=== PATIENT | male | born 1955 | race Caucasian/White ===

== ENCOUNTER 2020-08-16 10:10 | Emergency (ER) | payer OTHER, SELFPAY ==
[2020-08-16 10:17] VITALS: BP 196/63; PULSE 80; RESP 18; TEMP 36.8; O2SAT 98; BMI 25.8
--- NOTE | 2020-08-16 10:28 | HMH.EDGENADL ---
ED Disposition Clinical Impression: CVA, old, disturbances of vision Headache Qualifiers: Headache type: unspecified Headache chronicity pattern: acute headache Intractability: not intractable Qualified Code(s): R51 - Headache Eye pain Qualifiers: Laterality: left Qualified Code(s): H57.12 - Ocular pain, left eye Disposition: Home, Self-Care Condition on Discharge: Fair Instructions: DI for Headache Additional Instructions: Go straight to Dr. Cooper's office for eye exam. Dr. Roberto Cooper [facility] [address] [place] [address] Follow-up in the office with Dr. Gupta, call for appointment. Take aspirin 81 mg/day. Additional instructions for HEADACHE: See your physician as soon as possible for further evaluation. Return immediately if worsening headache, vomiting, problems with vision or speech, fever, numbness or weakness of the extremities, neck pain or stiffness. Referrals: Jac Gupta MD [Primary Care Provider] - - Critical Care Critical Care Time: No Attestation: On 08/16/20, the high probability of a clinically significant, sudden or life threatening deterioration of the following system(s) required my full and direct attention, intervention and personal management. The time I documented below is in addition to time spent performing reported procedures but includes the following listed in this critical care notation. Medical Decision Making - Medical Records Medical records reviewed: Yes: I reviewed the patient's medical records. - Donnell Inquiry Pt receiving controlled substance: Yes Donnell was queried for this patient: No Reason not queried -: Emergent pt cond-no time Risks and benefits of using a controlled substance: were not discussed with pt by me Vital Signs: 08/16/20 10:17 08/16/20 11:44 Temperature 98.2 F 98.1 F Temperature Source Oral Oral Pulse Rate 78 Pulse Rate [Right Brachial] 80 Respiratory Rate 18 18 Blood Pressure 165/76 H Blood Pressure [Right Arm] 196/63 H Blood Pressure Mean [Right Arm] 107 Blood Pressure Source Automatic Cuff Blood Pressure Source [Right Arm] Automatic Cuff Blood Pressure Position Supine Blood Pressure Position [Right Arm] Supine 02 Sat by Pulse Oximetry 98 Oxygen Delivery Method Room Air Room Air - Lab Data Lab results reviewed: Yes: I reviewed the patient's lab results. Lab Results 08/16/20 10:53: WBC 8.3, RBC 5.73, Hgb 17.9, Hct 50.4, MCV 88.0, MCH 31.3 H, MCHC 35.5 H, RDW 13.5, Plt Count 203, MPV 7.7, Neut % (Auto) 74.7, Lymph % (Auto) 16.7, Teller % (Auto) 6.3, Eos % (Auto) 1.6, Baso % (Auto) 0.7, Neut # (Auto) 6.2, Lymph # (Auto) 1.4, Teller # (Auto) 0.5, Eos # (Auto) 0.1, Baso # (Auto) 0.1, ESR 1 08/16/20 10:53: Sodium 127 L, Potassium 4.8, Chloride 86 L, Carbon Dioxide 33 H, Anion Gap 12.8, BUN 7 L, Creatinine 0.60 L, Estimated Creat Clear 80, Estimated GFR 136, Est GFR ( Amer) 165, Glucose 123 H, Calcium 9.1, Total Bilirubin 1.4 H, AST 32, ALT 18, Alkaline Phosphatase 64, C-Reactive Protein 1.6, Total Protein 7.1, Albumin 4.0, Globulin 3.1, Albumin/Globulin Ratio 1.3 Result diagrams: 08/16/20 10:53 08/16/20 10:53 Orders (Tests/Meds): ED MEDICATIONS Discontinued Medications Generic Name Dose Route Start Last Admin Trade Name Freq PRN Reason Stop Dose Admin Morphine Sulfate 4 mg 08/16/20 10:41 08/16/20 10:53 Morphine 4mg/Ml Syringe IV 08/16/20 10:42 4 mg ONCE ONE Administration Ondansetron HCl 4 mg 08/16/20 10:41 08/16/20 10:54 Zofran 4mg/2ml Vial IV 08/16/20 10:42 4 mg ONCE ONE Administration - CT Data CT Scan: Head Time Received: 11:[address] Reviewed: Yes: I have reviewed the patient's CT results, I discussed the CT results w/the radiologist, I have viewed the radiologist's interpretation Findings Narrative: PROCEDURE: CT HEAD/BRAIN WO CON CLINICAL INDICATION: headache Severe headache COMPARISON: No exams
--- NOTE | 2020-08-16 10:40 | CT_ITS ---
PROCEDURE: CT HEAD/BRAIN WO CON CLINICAL INDICATION: headache Severe headache COMPARISON: No exams were available for comparison TECHNIQUE: Axial images obtained. All CT scans at the facility use one or more dose reduction, viz: automated exposure control, ma/kV adjustment per patient size (including targeted exams where dose is matched to indication, i.e. head), or iterative reconstruction technique. FINDINGS: No midline shift, mass effect, intracranial hemorrhage, hydrocephalus, or extra-axial fluid collection is evident. Low-density changes are present in the left occipital lobe consistent with encephalomalacia change from an old area of infarction. The calvarium has an unremarkable appearance. No mastoid effusion. There is mild mucosal thickening of the ethmoid sinuses. Lobular soft tissue density is present in the floor the right maxillary sinus consistent with a retention cyst. No mastoid effusion IMPRESSION: Low-density changes in the left occipital lobe consistent with an area of encephalomalacia from old infarction. Please correlate with clinical findings. Otherwise negative with no acute intracranial findings. Dictated by: Phill Mera MD 08/16/2020 11:15 Phill Mera MD in [place] 08/16/2020 11:15
--- NOTE | 2020-08-16 10:54 | PC.NURSE ---
EMILY RAYMUNDO spoke with Dr. Cooper at this time
[2020-08-16 10:59] LABS: Basophils # 0.1 K/mm3 (0-0.2); Basophils % 0.7 % (0.1-2.0); Eosinophils # 0.1 K/mm3 (0.0-0.4); Eosinophils % 1.6 % (0.1-12.0); Hematocrit 50.4 % (42.0-52.0); Hemoglobin 17.9 g/dL (14.1-18.0); Lymphocytes # 1.4 K/mm3 (0.7-4.5); Lymphocytes % 16.7 % (10-50); Mean Corpuscular HGB Conc 35.5 g/dL (31.8-35.4); Mean Corpuscular Hemoglobin 31.3 pg (27.0-31.2); Mean Platelet Volume 7.7 fl (7.4-10.4); Monocytes # 0.5 K/mm3 (0.1-1.0); Monocytes % 6.3 % (1.7-9.3); Neutrophils # 6.2 K/mm3 (1.8-7.8); Neutrophils % 74.7 % (37.0-80.0); Platelet Count 203 K/mm3 (142-424); Red Blood Count 5.73 M/mm3 (4.60-6.20); Red Cell Distribution Width 13.5 % (11.5-17.5); White Blood Count 8.3 K/mm3 (4.8-10.8)
[2020-08-16 11:00] LABS: Chloride 86 mmol/L (98-107); Potassium 4.8 mmoL/L (3.5-5.1); Sodium 127 mmol/L (136-145)
[2020-08-16 11:02] LABS: Alanine Aminotransferase 18 U/L (12-78); Aspartate Amino Transferase 32 U/L (17-59); Blood Urea Nitrogen 7 mg/dl (9-20); Creatinine Clearance Estimated 80 mL/min (50-200); Estimated Glomerular Filt Rate 136 ml/min (>60); GFR (African American) 165 ML/MIN (>60)
[2020-08-16 11:03] LABS: Albumin/Globulin Ratio 1.3 (1.1-1.8); Alkaline Phosphatase 64 U/L (38-126); Anion Gap 12.8 mEq/L (5-15); Bilirubin,Total 1.4 mg/dl (0.2-1.3); Calcium 9.1 mg/dl (8.4-10.2); Carbon Dioxide 33 mmol/L (22.0-30.0); Globulin 3.1 g/dL (1.3-3.2); Glucose 123 mg/dl (74-100); Total Protein,Serum 7.1 g/dl (6.3-8.2)
[2020-08-16 11:09] LABS: C-Reactive Protein 1.6 mg/L (0-4)
--- NOTE | 2020-08-16 11:18 | PC.NURSE ---
ER spoke with radiologist r/t CT at this time
--- NOTE | 2020-08-16 11:24 | PC.NURSE ---
EMILY RAYMUNDO speaking with Dr. Gupta
--- NOTE | 2020-08-16 11:25 | PC.NURSE ---
visual acuity done. right-20/50 left-20/200 both-20/50
--- NOTE | 2020-08-16 11:30 | PC.NURSE ---
dr vanegas consulting with dr mathews at this time.
[2020-08-16 11:44] VITALS: BP 165/76; PULSE 78; RESP 18; TEMP 36.7; O2SAT 99
[2020-08-16 11:56] LABS: Erythrocyte Sedimentation Rate 1 mm/hr (0-20)
== END 2020-08-16 11:47 | disposition home or self-care (01) ==
PROVIDERS: Emergency Provider Emergency Medicine; PCP Family Medicine
DX: I69.398 Other sequelae of cerebral infarction (principal); H57.12 Ocular pain, left eye
CPT/HCPCS: 70450; 80053; 85025; 85651; 86140; 96374; 96375; 99282; J2405

== ENCOUNTER → 2021-03-30 17:21 | Outpatient (CLI) | payer BC, SELFPAY ==
[2021-03-30 17:44] LABS: Basophils # 0.1 K/mm3 (0-0.2); Basophils % 1.7 % (0.1-2.0); Eosinophils # 0.2 K/mm3 (0.0-0.4); Eosinophils % 2.6 % (0.1-12.0); Hemoglobin 15.8 g/dL (14.1-18.0); Lymphocytes # 1.8 K/mm3 (0.7-4.5); Lymphocytes % 32.6 % (10-50); Mean Corpuscular HGB Conc 31.7 g/dL (31.8-35.4); Mean Corpuscular Volume 88.4 fl (80-94); Mean Platelet Volume 8.2 fl (7.4-10.4); Monocytes # 0.5 K/mm3 (0.1-1.0); Monocytes % 8.7 % (1.7-9.3); Neutrophils # 3.1 K/mm3 (1.8-7.8); Neutrophils % 54.4 % (37.0-80.0); Platelet Count 231 K/mm3 (142-424); Red Blood Count 5.65 M/mm3 (4.60-6.20); Red Cell Distribution Width 13.3 % (11.5-17.5); White Blood Count 5.6 K/mm3 (4.8-10.8)
[2021-03-30 17:51] LABS: Alanine Aminotransferase 14 U/L (12-78); Albumin Level 4.5 g/dl (3.5-5.0); Albumin/Globulin Ratio 1.7 (1.1-1.8); Alkaline Phosphatase 72 U/L (38-126); Anion Gap 13.5 mEq/L (5-15); Aspartate Amino Transferase 25 U/L (17-59); Bilirubin,Total 0.5 mg/dl (0.2-1.3); Blood Urea Nitrogen 16 mg/dl (9-20); Calcium 10.1 mg/dl (8.4-10.2); Carbon Dioxide 35 mmol/L (22.0-30.0); Chloride 93 mmol/L (98-107); Chol/HDL Ratio 3.5 (1-3.5); Cholesterol 156 mg/dl (140-200); Estimated Glomerular Filt Rate 98 ml/min (>60); GFR (African American) 118 ML/MIN (>60); Globulin 2.7 g/dL (1.3-3.2); Glucose 113 mg/dl (74-100); HDL Cholesterol 44 mg/dl (40-60); Potassium 4.5 mmoL/L (3.5-5.1); Sodium 137 mmol/L (136-145); Total Protein,Serum 7.2 g/dl (6.3-8.2); Triglycerides 168 mg/dl (30-150); VLDL Cholesterol 34 mg/dL (0-40)
[2021-03-30 18:02] LABS: Direct LDL Cholesterol 85.69 mg/dL (100-129)
[2021-03-30 18:08] LABS: T4 (Thyroxine) 7.6 ug/dl (5.53-11.0)
[2021-03-30 18:21] LABS: Thyroid Stimulating Hormone 2.22 uIU/mL (0.465-4.68)
[2021-04-02 06:33] LABS: PSA, Free 0.33 ng/mL; Prostate Specific Ag 0.9 ng/mL (0.0-4.0)
== END ==
PROVIDERS: Visit Provider Nurse Practitioner Family
DX: I10 Essential (primary) hypertension (principal); R07.9 Chest pain, unspecified; R06.02 Shortness of breath; I69.398 Other sequelae of cerebral infarction; H53.9 Unspecified visual disturbance; Z72.0 Tobacco use; Z12.5 Encounter for screening for malignant neoplasm of prostate
CPT/HCPCS: 80053; 80061; 84153; 84154; 84436; 84443; 85025

== ENCOUNTER → 2022-05-04 14:42 | Outpatient (CLI) | payer BC, SELFPAY ==
[2022-05-04 14:17] LABS: Alanine Aminotransferase 14 U/L (12-78); Albumin Level 4.1 g/dl (3.5-5.0); Albumin/Globulin Ratio 1.5 (1.1-1.8); Alkaline Phosphatase 94 U/L (38-126); Anion Gap 11.4 mEq/L (5-15); Aspartate Amino Transferase 27 U/L (17-59); Bilirubin,Total 0.7 mg/dl (0.2-1.3); Blood Urea Nitrogen 10 mg/dl (9-20); Calcium 8.9 mg/dl (8.4-10.2); Carbon Dioxide 37 mmol/L (22.0-30.0); Chloride 90 mmol/L (98-107); Chol/HDL Ratio 3.9 (1-3.5); Cholesterol 154 mg/dl (140-200); Estimated Glomerular Filt Rate 114 ml/min (>60); GFR (African American) 137 ML/MIN (>60); Globulin 2.7 g/dL (1.3-3.2); Glucose 148 mg/dl (74-100); HDL Cholesterol 40 mg/dl (40-60); Potassium 4.4 mmoL/L (3.5-5.1); Sodium 134 mmol/L (136-145); Total Protein,Serum 6.8 g/dl (6.3-8.2); Triglycerides 81 mg/dl (30-150); VLDL Cholesterol 16 mg/dL (0-40)
[2022-05-04 14:20] LABS: Basophils # 0.2 K/mm3 (0-0.2); Basophils % 4.1 % (0.1-2.0); Eosinophils # 0.2 K/mm3 (0.0-0.4); Eosinophils % 2.7 % (0.1-12.0); Hematocrit 49.4 % (42.0-52.0); Hemoglobin 16.2 g/dL (14.1-18.0); Lymphocytes # 1.1 K/mm3 (0.7-4.5); Lymphocytes % 19.9 % (10-50); Mean Corpuscular HGB Conc 32.7 g/dL (31.8-35.4); Mean Corpuscular Hemoglobin 29.1 pg (27.0-31.2); Mean Platelet Volume 9.2 fl (7.4-10.4); Monocytes # 0.4 K/mm3 (0.1-1.0); Monocytes % 6.5 % (1.7-9.3); Neutrophils # 3.7 K/mm3 (1.8-7.8); Neutrophils % 66.7 % (37.0-80.0); Platelet Count 237 K/mm3 (142-424); Red Blood Count 5.56 M/mm3 (4.60-6.20); Red Cell Distribution Width 14.3 % (11.5-17.5); White Blood Count 5.5 K/mm3 (4.8-10.8)
[2022-05-04 14:29] LABS: Direct LDL Cholesterol 89.02 mg/dL (100-129)
[2022-05-04 14:34] LABS: 25-OH Vitamin D, Total 19.2 ng/mL (30-100)
[2022-05-04 14:35] LABS: T4 (Thyroxine) 8.3 ug/dl (5.53-11.0)
[2022-05-04 14:49] LABS: Prostate Specific Ag Screen 13.7 ng/ml (0.0-4.0)
== END ==
PROVIDERS: PCP Nurse Practitioner Family; Visit Provider Nurse Practitioner Family
DX: I10 Essential (primary) hypertension (principal); Z12.5 Encounter for screening for malignant neoplasm of prostate; Z79.899 Other long term (current) drug therapy
CPT/HCPCS: 80053; 80061; 82306; 84436; 84443; 85025; G0103

== ENCOUNTER → 2023-07-03 11:25 | Outpatient (CLI) | payer MEDICARE, MEDICAID, SELFPAY | PROVIDERS: PCP Nurse Practitioner Family; Visit Provider Nurse Practitioner Family | DX: N39.0 Urinary tract infection, site not specified (principal); B96.29 Other Escherichia coli [E. coli] as the cause of diseases classified elsewhere | CPT/HCPCS: 87086; 87088; 87186 ==

== ENCOUNTER → 2023-08-19 11:19 | Outpatient (CLI) | payer MEDICARE, MEDICAID, SELFPAY | PROVIDERS: PCP Nurse Practitioner Family; Visit Provider Nurse Practitioner Family | DX: R82.90 Unspecified abnormal findings in urine (principal) | CPT/HCPCS: 87086 ==

== ENCOUNTER → 2023-08-26 11:21 | Outpatient (CLI) | payer MEDICARE, MEDICAID, SELFPAY | PROVIDERS: PCP Nurse Practitioner Family; Visit Provider Nurse Practitioner Family | DX: R82.90 Unspecified abnormal findings in urine (principal); B96.89 Other specified bacterial agents as the cause of diseases classified elsewhere | CPT/HCPCS: 87086; 87088; 87186 ==

== ENCOUNTER 2024-02-12 20:03 | Outpatient (CLI) | payer MEDICARE, MEDICAID, SELFPAY | END 2024-02-12 23:59 | PROVIDERS: PCP Nurse Practitioner Family; Visit Provider Nurse Practitioner Family | DX: N39.0 Urinary tract infection, site not specified (principal); B96.89 Other specified bacterial agents as the cause of diseases classified elsewhere | CPT/HCPCS: 87086 ==

== ENCOUNTER 2024-06-12 10:56 | Emergency (ER) | payer MEDICARE, SELFPAY ==
[2024-06-12] VITALS (8 sets, daily range): BP systolic 125–155; BP diastolic 62–93; PULSE 69–115; RESP 20; TEMP 36.7; O2SAT 94–97; BMI 21.9
--- NOTE | 2024-06-12 11:19 | HMH.EDGENADL ---
Discharge Plan Disposition Patient Disposition: Home, Self-Care Condition: Fair Prescriptions Prescriptions: New clindamycin HCl 300 mg capsule 450 mg PO TID 7 Days Qty: 32 0RF No Action levofloxacin 750 mg tablet 750 mg PO DAILY Qty: 7 0RF atorvastatin 80 mg tablet 80 mg PO HS Qty: 90 2RF clopidogrel 75 mg tablet 75 mg PO DAILY Qty: 90 0RF ropinirole 1 mg tablet See Rx Instructions .ROUTE .COMPLEX Qty: 60 0RF Dose Instruction: TAKE 1 TABLET BY MOUTH AT BEDTIME INCREASE TO 2 TABLETS AFTER 7 DAYS IF NEEDED Rx Instructions: TAKE 1 TABLET BY MOUTH AT BEDTIME INCREASE TO 2 TABLETS AFTER 7 DAYS IF NEEDED Referrals Follow up/Referrals: Simon Mccoy APRN [Primary Care Provider] - See instructions Clinical Impressions Clinical Impression: Cellulitis of right lower extremity Discharge ED Provider: Alex Ferrer General Adult HPI General Chief complaint: Extremity Problem,Nontraumatic Stated complaint: soa R foot infection Time Seen by Provider: 06/12/24 11:18 Mode of Arrival: Wheelchair Source of Information: Patient Limitations: Physical Limitations Description of Symptoms (Recalled from ER Triage Doc. by RN): Patient reports pain and swelling in his right foot and calf muscle for approx 1 year. States it is just getting worse. Reports seeing his family doctor multiple times for this problem and was told that they would make him a vascular appointment and it never got made. History of Present Illness HPI narrative: 68-year-old male with past medical history significant for CVA, HTN, IN, peripheral vascular disease, left AKA, presents today for evaluation concerning right lower extremity swelling, erythema and pain worsening over the past several months. He also reports shortness of breath. Denies any chest pain, fevers, chills, cough or congestion. Denies history of DVT or PE. He denies any other associated symptoms at this time. No further complaints. Related Data Previous Rx's Medication Instructions Recorded levofloxacin 750 mg tablet 750 mg PO DAILY #7 tabs 02/12/24 atorvastatin 80 mg tablet 80 mg PO HS #90 tabs 04/29/24 clopidogrel 75 mg tablet 75 mg PO DAILY #90 tabs 04/29/24 ropinirole 1 mg tablet See Rx Instructions .Route 05/25/24 .COMPLEX #60 tabs clindamycin HCl 300 mg capsule 450 mg (1.5 x 300 mg) PO TID 7 06/12/24 days #32 caps Allergies Allergy/AdvReac Type Severity Reaction Status Date / Time No Known Allergies Allergy Verified 02/12/24 14:13 [facility] Disclaimer: The information contained in this section may have been updated after the patient was seen, as this information can be updated by other users. Medical History Left above-knee amputee Social History Smoking Status: Former smoker tobacco type: cigarettes packs per day: 1 alcohol intake: former substance use type: denies use current occupational status: unemployed Travel in the last 8 weeks: None household members: other ROS Obtained: Yes All systems reviewed & no additional complaints except as documented Physical Exam General General appearance: alert and in no apparent distress Head Head exam: atraumatic and normocephalic Eye Eye exam: Present normal appearance, PERRL and EOMI ENT ENT exam: Present normal oropharynx and mucous membranes moist Neck Neck exam: Present full ROM; Absent meningismus Respiratory Respiratory exam: Absent respiratory distress, wheezes, stridor or accessory muscle use Cardiovascular Cardiovascular exam: Present normal rhythm Abdominal Exam Abdominal exam: Present soft; Absent distention, tenderness, guarding, rebound or rigidity Extremities Exam Extremities exam: Present other (Left AKA. Right lower extremity with 3+ pitting edema from the knee to the foot. The foot is erythematous and tender to palpation) Neurological Exam Neurological exam: Present alert, oriented X3 and CN II-XII intact; Absent motor sensory deficit Psychiatric Psychiatric exam: Present normal affect and normal mood Skin Skin exam: Present warm and dry Medical Decision Making Medical Records Medical records reviewed: Yes I reviewed the patient's medical records. Donnell Inquiry Pt receiving controlled substance: No Donnell was queried for this patient: No Vital Signs: 06/12/24 10:57 06/12/24 11:15 06/12/24 11:52 Temperature 98.0 F Temperature Source Oral Pulse Rate 98 H 93 H Pulse Rate [Radial] 115 H Respiratory Rate 20 Blood Pressure 142/67 H Blood Pressure [Right Arm] 155/93 H Blood Pressure Mean [Right Arm] 113 Blood Pressure Source [Right Arm] Automatic Cuff Blood Pressure Position [Right Arm] Sitting 02 Sat by Pulse Oximetry 96 96 94 L Oxygen Delivery Method Room Air 06/12/24 12:01 06/12/24 12:31 06/12/24 13:01 Temperature Temperature Source Pulse Rate 83 74 69 Pulse Rate [Radial] Respiratory Rate Blood Pressure 125/68 131/62 140/78 Blood Pressure [Right Arm] Blood Pressure Mean [Right Arm] Blood Pressure Source [Right Arm] Blood Pressure Position [Right Arm] 02 Sat by Pulse Oximetry 94 L 97 97 Oxygen Delivery Method 06/12/24 13:30 Temperature Temperature Source Pulse Rate 77 Pulse Rate [Radial] Respiratory Rate Blood Pressure 134/80 Blood Pressure [Right Arm] Blood Pressure Mean [Right Arm] Blood Pressure Source [Right Arm] Blood Pressure Position [Right Arm] 02 Sat by Pulse Oximetry 96 Oxygen Delivery Method Lab Data Lab Results 06/12/24 11:41: WBC 8.0, RBC 4.81, Hgb 13.7 L, Hct 40.7 L, MCV 84.6, MCH 28.4, MCHC 33.6, RDW 15.5, Plt Count 276, MPV 7.8, Neut % (Auto) 68.1, Lymph % (Auto) 17.4, Casey % (Auto) 5.4, Eos % (Auto) 8.2, Baso % (Auto) 1.0, Neut # (Auto) 5.4, Lymph # (Auto) 1.4, Casey # (Auto) 0.4, Eos # (Auto) 0.7 H, Baso # (Auto) 0.1, ESR 20, PT 10.3, INR 0.91, Sodium 135 L, Potassium 4.3, Chloride 102, Carbon Dioxide 27, Anion Gap 10.3, BUN 12, Creatinine 0.70, Estimated Creat Clear 65, Estimated GFR 113, Est GFR ( Amer) 137, Glucose 136 H, Calcium 8.9, Total Bilirubin 0.9, AST 36, ALT 23, Alkaline Phosphatase 92, C-Reactive Protein 4.7 H, NT-Pro-B Natriuret Pep 44.1, Total Protein 7.7, Albumin 4.3, Globulin 3.4 H, Albumin/Globulin Ratio 1.3 06/12/24 11:41 06/12/24 11:41 Orders (Tests/Meds): ED MEDICATIONS Discontinued Medications Generic Name Dose Route Start Last Admin Trade Name Freq PRN Reason Stop Dose Admin Famotidine 20 mg 06/12/24 13:37 06/12/24 13:51 Famotidine 20mg Tablet PO 06/12/24 13:38 Not Given ONCE ONE Morphine Sulfate 4 mg 06/12/24 11:28 06/12/24 11:45 Morphine 4mg/Ml Syringe IV 06/12/24 11:29 4 mg ONCE ONE Administration Ondansetron HCl 4 mg 06/12/24 11:28 06/12/24 11:45 Ondansetron 4mg/2ml Vial IV 06/12/24 11:29 4 mg ONCE ONE Administration ORDERS Category Date Time Status Foot XR left 2 views [XR foot LT 2V] Stat Exams 06/12/24 11:28 Completed BNP [NT Pro Brain Natriuretic Pep.] Stat Lab 06/12/24 11:41 Completed CBC w/Auto Diff [Complete Blood Count Auto Diff] Stat Lab 06/12/24 11:41 Completed CMP [Comprehensive Metabolic Panel] Stat Lab 06/12/24 11:41 Completed CRP [C-Reactive Protein] Stat Lab 06/12/24 11:41 Completed ESR [Erythrocyte Sedimentation Rate] Stat Lab 06/12/24 11:41 Completed PT INR [Prothrombin Time INR] Stat Lab 06/12/24 11:41 Completed CA venous doppler LE RT Stat Y 06/12/24 11:28 Completed Medical Decision Narrative: 68-year-old male with past medical history significant for CVA, HTN, IN, peripheral vascular disease, left AKA, presents today for evaluation concerning right lower extremity swelling, erythema and pain worsening over the past several months. He also reports shortness of breath. Denies any chest pain, fevers, chills, cough or congestion. Denies history of DVT or PE. He denies any other associated symptoms at this time. On assessment he was hemodynamically stable and in no acute distress. Afebrile. Chest clear to auscultation bilaterally. He was tachycardic with heart rate of 101 on monitor. Abdomen soft nondistended and nontender. Left AKA. Right lower extremity with 3+ pitting edema from the knee to the foot. Left foot was erythematous and tender to palpation. He did have calf tenderness to palpation as well. He did have palpable DP pulse. Pulses also able to be auscultated with Doppler. Other physical exam findings unremarkable. Differential diagnoses include not limited to DVT, PVD, cellulitis, among others. Labs today remarkable for a WBC of 8. CRP with mild elevation at 4.7. ESR unremarkable. X-ray of the right foot did not show any acute findings, chronic degenerative changes were noted. DVT ultrasound was negative. BNP 44.1, normal. On reassessment the patient remained hemodynamically stable and in no acute distress. His pain was improved. I discussed ED workup and results as well as clinical diagnosis of a cellulitis. I did use a bedside ultrasound to support diagnosis and findings consistent with cellulitis were noted. I did not save images. I discussed with family current plan to treat with outpatient antibiotics. Provided them with return ED precautions and instructions concerning follow-up. They will continue to attempt to make appointments with vascular surgery in the setting of patient's PVD. Patient was subsequently discharged hemodynamically stable and in no acute distress Critical Care Critical Care Time Critical Care Time: No
--- NOTE | 2024-06-12 11:28 | XR_ITS ---
FINAL REPORT CLINICAL HISTORY: pain FINDINGS: Left foot Two views were obtained. The bones are osteopenic. Mild degenerative changes are present. There is soft tissue swelling of the forefoot. The bony structures are difficult to evaluate secondary to diffuse osteopenia. Vascular calcification is identified. IMPRESSION: Degenerative and chronic appearing findings. Reviewed, Interpreted and Dictated by Cameron Pleitez III, MD Transcribed by Catrachita Mcnair Authenticated and [facility]
--- NOTE | 2024-06-12 11:28 | CA_ITS ---
FINAL REPORT TECHNIQUE: Color Doppler, duplex Doppler and compression sonography of the right lower extremity venous system was performed. CLINICAL HISTORY: RLE swelling and pain x 1 year, worse in last few months, 3+ pitting edema, Hx CVA, HTN, AR, left AKA, HLD, ex smoker. FINDINGS: There is no evidence of deep venous thrombosis from the level of the groin to the calf. The veins are patent and compressible. There is a right inguinal node, likely reactive. IMPRESSION: No evidence of deep venous thrombosis right lower extremity. Reviewed, Interpreted and Dictated by Cameron Pleitez III, MD Transcribed by Catrachita Mcnair Authenticated and [facility]
--- NOTE | 2024-06-12 11:40 | PC.NURSE ---
support service tech at bedside for portable XR
[2024-06-12] MEDS: ONDANSETRON 4MG/2ML VIAL 4 MG IV (11:45)
[2024-06-12] MEDS: MORPHINE 4MG/ML SYRINGE 4 MG IV (11:45)
[2024-06-12 11:49] LABS: Basophils # 0.1 K/mm3 (0-0.2); Eosinophils # 0.7 K/mm3 (0.0-0.4); Eosinophils % 8.2 % (0.1-12.0); Hematocrit 40.7 % (42.0-52.0); Hemoglobin 13.7 g/dL (14.1-18.0); Lymphocytes # 1.4 K/mm3 (0.7-4.5); Lymphocytes % 17.4 % (10-50); Mean Corpuscular HGB Conc 33.6 g/dL (31.8-35.4); Mean Corpuscular Hemoglobin 28.4 pg (27.0-31.2); Mean Corpuscular Volume 84.6 fl (80-94); Mean Platelet Volume 7.8 fl (7.4-10.4); Monocytes # 0.4 K/mm3 (0.1-1.0); Monocytes % 5.4 % (1.7-9.3); Neutrophils # 5.4 K/mm3 (1.8-7.8); Neutrophils % 68.1 % (37.0-80.0); Platelet Count 276 K/mm3 (142-424); Red Blood Count 4.81 M/mm3 (4.60-6.20); Red Cell Distribution Width 15.5 % (11.5-17.5)
[2024-06-12 11:58] LABS: Alanine Aminotransferase 23 U/L (12-78); Albumin Level 4.3 g/dl (3.5-5.0); Albumin/Globulin Ratio 1.3 (1.1-1.8); Alkaline Phosphatase 92 U/L (38-126); Anion Gap 10.3 mEq/L (5-15); Aspartate Amino Transferase 36 U/L (17-59); Bilirubin,Total 0.9 mg/dl (0.2-1.3); Blood Urea Nitrogen 12 mg/dl (9-20); Calcium 8.9 mg/dl (8.4-10.2); Carbon Dioxide 27 mmol/L (22.0-30.0); Chloride 102 mmol/L (98-107); Creatinine Clearance Estimated 65 mL/min (50-200); Estimated Glomerular Filt Rate 113 ml/min (>60); GFR (African American) 137 ML/MIN (>60); Globulin 3.4 g/dL (1.3-3.2); Glucose 136 mg/dl (74-100); INR 0.91 (0.9-1.1); Potassium 4.3 mmoL/L (3.5-5.1); Prothrombin Time 10.3 seconds (10.1-12.5); Sodium 135 mmol/L (136-145); Total Protein,Serum 7.7 g/dl (6.3-8.2)
[2024-06-12 12:10] LABS: C-Reactive Protein 4.7 mg/L (0-4)
[2024-06-12 12:45] LABS: Erythrocyte Sedimentation Rate 20 mm/hr (0-20)
[2024-06-12 13:54] LABS: NT Pro Brain Natriuretic Pep. 44.1 pg/mL (0-125)
== END 2024-06-12 15:07 | disposition home or self-care (01) ==
PROVIDERS: Emergency Provider Emergency Medicine; PCP Nurse Practitioner Family
DX: L03.115 Cellulitis of right lower limb (principal); I73.9 Peripheral vascular disease, unspecified; I10 Essential (primary) hypertension; M79.604 Pain in right leg; Z87.891 Personal history of nicotine dependence; Z86.73 Personal history of transient ischemic attack (TIA), and cerebral infarction without residual deficits; Z89.612 Acquired absence of left leg above knee
CPT/HCPCS: 73620; 80053; 83880; 85025; 85610; 85651; 86140; 93971; 96374; 96375; 99284; J2270; J2405

== ENCOUNTER 2024-09-10 10:42 | Emergency (ER) | payer MEDICARE, SELFPAY ==
[2024-09-10] VITALS (8 sets, daily range): BP systolic 101–163; BP diastolic 62–88; PULSE 74–100; RESP 18–20; TEMP 36.6–36.9; O2SAT 92–99; BMI 23.5
--- NOTE | 2024-09-10 10:50 | PC.NURSE ---
DR ALBERTO AT BEDSIDE
--- NOTE | 2024-09-10 11:00 | HMH.EDGENADL ---
Discharge Plan Disposition Patient Disposition: Home, Self-Care Prescriptions Prescriptions: No Action levofloxacin 750 mg tablet 750 mg PO DAILY Qty: 7 0RF atorvastatin 80 mg tablet 80 mg PO HS Qty: 90 2RF clopidogrel 75 mg tablet See Rx Instructions .ROUTE .COMPLEX Qty: 90 0RF Dose Instruction: Take 1 tablet by mouth once daily Rx Instructions: Take 1 tablet by mouth once daily ropinirole 1 mg tablet See Rx Instructions .ROUTE .COMPLEX Qty: 60 0RF Dose Instruction: TAKE 1 TABLET BY MOUTH AT BEDTIME INCREASE TO 2 TABLETS AFTER 7 DAYS IF NEEDED Rx Instructions: TAKE 1 TABLET BY MOUTH AT BEDTIME INCREASE TO 2 TABLETS AFTER 7 DAYS IF NEEDED clindamycin HCl 300 mg capsule 450 mg PO TID 7 Days Qty: 32 0RF Referrals Follow up/Referrals: Simon Mccoy APRN [Primary Care Provider] - See instructions Activity Restrictions/Add. Instructions Additional Instructions/Restrictions: Dalbavancin will begin working immediately, you will start to notice a difference in redness after about 3 days. Call your family doctor to establish care for this visit to the emergency department and schedule follow-up within 48 hours to ensure improvement. If you have any worsening of your condition or any other concerning signs or symptoms, return to the emergency department or your primary care doctor for further evaluation. Clinical Impressions Clinical Impression: Cellulitis of right leg Instructions Patient Instructions: DI for Skin Abscess Print Language Print Language: Italian Discharge ED Provider: Sterling Rodriguez General Adult HPI General Chief complaint: Skin/Abscess/Foreign Body Stated complaint: right leg swelling and drainage Time Seen by Provider: 09/10/24 10:50 Mode of Arrival: Wheelchair Source of Information: Patient and Significant Other Limitations: No Limitations Description of Symptoms (Recalled from ER Triage Doc. by RN): PT ARRIVES VIA WC, C/O PAIN, REDNESS AND DRAINAGE TO RIGHT LOWER LEG AND FOOT. ONGOING FOR 3 MONTHS History of Present Illness HPI narrative: Please note that above description of symptoms, in this electronic medical record under categorization of recalled from ER triage doctor by RN are reflective of an initial nursing assessment, however, is not reflective of my full history and physical exam that was personally taken and clarified. Consequentially, this preceding description of symptoms, which may include the patient's categorized chief complaint in the EMR, do not reflect my personal clinical impression, and the ultimate description of history of present illness and patient stated complaints should be deferred to this section of the note. Unless stated otherwise or congruent with this section of the note, additional signs, symptoms, or incongruence should be interpreted as inaccurate with my clinical impression. Related Data Previous Rx's ?Medication ?Instructions ?Recorded levofloxacin 750 mg tablet 750 mg PO DAILY #7 tabs 02/12/24 atorvastatin 80 mg tablet 80 mg PO HS #90 tabs 04/29/24 clindamycin HCl 300 mg capsule 450 mg (1.5 x 300 mg) PO TID 7 06/12/24 days #32 caps clopidogrel 75 mg tablet See Rx Instructions .Route 07/28/24 .COMPLEX #90 tabs ropinirole 1 mg tablet See Rx Instructions .Route 08/24/24 .COMPLEX #60 tabs Allergies Allergy/AdvReac Type Severity Reaction Status Date / Time No Known Allergies Allergy Verified 02/12/24 14:13 [facility] Disclaimer: The information contained in this section may have been updated after the patient was seen, as this information can be updated by other users. Medical History Left above-knee amputee Social History Smoking Status: Former smoker tobacco type: cigarettes packs per day: 1 alcohol intake: former substance use type: denies use current occupational status: unemployed Travel in the last 8 weeks: None household members: other Other Medical History Have you received the Flu Vaccine for this season: Yes Have you received the Pneumonia Vaccine: No ROS Obtained: Yes All systems reviewed & no additional complaints except as documented Physical Exam General General appearance: alert and in no apparent distress Comment: Chronically ill Head Head exam: atraumatic and normocephalic Eye Eye exam: Present normal appearance, PERRL and EOMI Neck Neck exam: Present normal inspection, full ROM and trachea midline Respiratory Respiratory exam: Absent respiratory distress, wheezes, stridor, accessory muscle use or prolonged expiratory phase Cardiovascular Cardiovascular exam: Present regular rate, normal rhythm and other (Pulses equal symmetric in upper and lower extremities) Abdominal Exam Abdominal exam: Present soft; Absent distention, tenderness or pulsatile mass Extremities Exam Extremities exam: Present edema and other (Left lower extremity AKA. Right lower extremity with erythema, drainage, cellulitic change, warmth, edema extending from lower leg just distal to knee all the way through toes.. No palpable crepitus. Capillary refill brisk) Neurological Exam Neurological exam: Present alert and oriented X3 Skin Skin exam: Present warm and dry; Absent diaphoresis or erythema Medical Decision Making Medical Records Medical records reviewed: Yes I reviewed the patient's medical records. Screening: Per USPSTF and CDC recommendations, given the prevalence of disease in our region, it is our hospital?s policy to screen for HIV and viral Hepatitis for all patients aged 18 and over and those with ongoing risk factors. Donnell Inquiry Pt receiving controlled substance: No Donnell was queried for this patient: No Vital Signs: 09/10/24 10:42 09/10/24 11:00 09/10/24 11:30 Temperature 98.4 F Temperature Source Oral Pulse Rate 95 H 81 Pulse Rate [Radial] 100 H Respiratory Rate 18 Blood Pressure 122/65 125/62 Blood Pressure [Right Arm] 163/88 H Blood Pressure Mean Blood Pressure Mean [Right Arm] 113 Blood Pressure Source [Right Arm] Automatic Cuff Blood Pressure Position [Right Arm] Sitting 02 Sat by Pulse Oximetry 96 95 92 L Oxygen Delivery Method Room Air 09/10/24 12:00 09/10/24 12:30 09/10/24 13:00 Temperature Temperature Source Pulse Rate 78 82 78 Pulse Rate [Radial] Respiratory Rate Blood Pressure 101/67 L 137/67 150/79 H Blood Pressure [Right Arm] Blood Pressure Mean 78 76 Blood Pressure Mean [Right Arm] Blood Pressure Source [Right Arm] Blood Pressure Position [Right Arm] 02 Sat by Pulse Oximetry 97 98 99 Oxygen Delivery Method Room Air Room Air 09/10/24 13:30 Temperature Temperature Source Pulse Rate 74 Pulse Rate [Radial] Respiratory Rate Blood Pressure 145/70 H Blood Pressure [Right Arm] Blood Pressure Mean Blood Pressure Mean [Right Arm] Blood Pressure Source [Right Arm] Blood Pressure Position [Right Arm] 02 Sat by Pulse Oximetry 99 Oxygen Delivery Method Lab Data Lab Results 09/10/24 10:52: WBC 6.5, RBC 5.23, Hgb 14.7, Hct 43.0, MCV 82.2, MCH 28.0, MCHC 34.1, RDW 15.7, Plt Count 271, MPV 7.5, Neut % (Auto) 71.7, Lymph % (Auto) 16.5, [place] % (Auto) 6.0, Eos % (Auto) 5.0, Baso % (Auto) 0.9, Neut # (Auto) 4.7, Lymph # (Auto) 1.1, [place] # (Auto) 0.4, Eos # (Auto) 0.3, Baso # (Auto) 0.1, PT 10.5, INR 0.93, APTT 30.4, Sodium 131 L, Potassium 3.6, Chloride 97 L, Carbon Dioxide 33 H, Anion Gap 4.6 L, BUN 13, Creatinine 0.70, Estimated Creat Clear 69, Estimated GFR 112, Est GFR ( Amer) 136, Glucose 168 H, Lactate 2.7 H, Calcium 9.2, Total Bilirubin 1.0, AST 30, ALT 28, Alkaline Phosphatase 107, Total Protein 7.5, Albumin 4.3, Globulin 3.2, Albumin/Globulin Ratio 1.3, HIV 1&2 Antibody Rapid Nonreactive 09/10/24 10:52 09/10/24 10:52 Orders (Tests/Meds): ED MEDICATIONS Discontinued Medications Generic Name Dose Route Start Last Admin Trade Name Freq PRN Reason Stop Dose Admin Dalbavancin 1,500 mg/ Dextrose 250 mls @ 500 mls/hr 09/10/24 12:49 09/10/24 13:10 IV 09/10/24 12:50 500 mls/hr ONCE ONE Administration ORDERS Category Date Time Status CBC w/Auto Diff [Complete Blood Count Auto Diff] Stat Lab 09/10/24 10:52 Completed CMP [Comprehensive Metabolic Panel] Stat Lab 09/10/24 10:52 Completed HIV (1&2) Antibody Rapid Stat Lab 09/10/24 10:52 Completed Hep C Ab with Reflex to RNA Stat Lab 09/10/24 10:52 Received Lactic Acid Stat Lab 09/10/24 10:52 Completed PT INR [Prothrombin Time INR] Stat Lab 09/10/24 10:52 Completed PTT [Activated Partial Thrombo Time] Stat Lab 09/10/24 10:52 Completed Blood Culture Stat Micro 09/10/24 11:06 Received Medical Decision Narrative: This is a 69-year-old male history of peripheral arterial disease secondary to tobacco use no longer smoking, hypertension, hyperlipidemia, CVA, NM status post stenting presenting with right lower extremity swelling and weeping. This has been getting worse over the past few days. States he has no fevers, chills, nausea, vomiting, or any other concerns. Mostly came in today, 09/10 because it began to weep yesterday. No overt purulence, weeping fluid is clear. Noticed that it was getting red more so than usual. Redness usually is on the foot, it has extended proximally up toward the knee almost all the way to the knee at this point. History was obtained via conversation with patient and family. On arrival, patient hemodynamically stable, alert, oriented x4, appropriate, GCS 15, moving all extremities spontaneously, pupils equal and reactive to light. Full physical exam performed and significant for chronically ill-appearing male who is in no acute distress. Answering questions appropriately. Hypertensive, nontachycardic on my evaluation. Patient's right lower extremity with edema, chronic overlying skin changes, reportedly acute areas of weeping on anterior lateral leg as well as posterior medial lower leg. Capillary refill brisk. Patient has 2+ nonpitting edema. Range of motion intact. Nontender with active or passive range of motion. Differential includes cellulitis, necrotizing soft tissue infection, sepsis, abscess, osteomyelitis, among others. Independent rotation of workup demonstrates nonactionable CBC. Nonactionable chemistry. Patient's lactate mildly elevated, I feel this is less likely due to overwhelming infection and sepsis as it is the dehydration. Patient does have dry mucous membranes, and overall well-appearing, nontachycardic, normotensive. Blood cultures drawn and still pending. Because patient clinically well, dalbavancin 1500 mg ordered for infusion. After infusion, patient deemed appropriate for discharge. Because patient at baseline without signs or symptoms of clinical decompensation, deemed appropriate for discharge. Results were relayed to patient who voiced understanding and were agreeable to outpatient management and follow up. I discussed my clinical impression with patient and answered all questions. At this time, the evidence for any other entities in the differential is insufficient to warrant any further testing or ED observation. This was explained as well. Advisory was given that persistent or worsening symptoms require further evaluation. I confirmed the understanding of this discussion. [employer] Records Clerk disclaimer Much of this encounter note is an electronic merit system director spoken language to printed text. Electronic merit system director of the spoken language may permit errors. Although I have reviewed the note, some errors may still exist. Critical Care Critical Care Time Critical Care Time: No
[2024-09-10 11:33] LABS: Alanine Aminotransferase 28 U/L (12-78); Albumin Level 4.3 g/dl (3.5-5.0); Albumin/Globulin Ratio 1.3 (1.1-1.8); Alkaline Phosphatase 107 U/L (38-126); Anion Gap 4.6 mEq/L (5-15); Aspartate Amino Transferase 30 U/L (17-59); Blood Urea Nitrogen 13 mg/dl (9-20); Calcium 9.2 mg/dl (8.4-10.2); Carbon Dioxide 33 mmol/L (22.0-30.0); Chloride 97 mmol/L (98-107); Creatinine Clearance Estimated 69 mL/min (50-200); Estimated Glomerular Filt Rate 112 ml/min (>60); GFR (African American) 136 ML/MIN (>60); Globulin 3.2 g/dL (1.3-3.2); Glucose 168 mg/dl (74-100); Lactic Acid 2.7 mmol/L (0.7-2.1); Potassium 3.6 mmoL/L (3.5-5.1); Sodium 131 mmol/L (136-145); Total Protein,Serum 7.5 g/dl (6.3-8.2)
[2024-09-10 11:39] LABS: Basophils # 0.1 K/mm3 (0-0.2); Basophils % 0.9 % (0.1-2.0); Eosinophils # 0.3 K/mm3 (0.0-0.4); Hemoglobin 14.7 g/dL (14.1-18.0); Lymphocytes # 1.1 K/mm3 (0.7-4.5); Lymphocytes % 16.5 % (10-50); Mean Corpuscular HGB Conc 34.1 g/dL (31.8-35.4); Mean Corpuscular Volume 82.2 fl (80-94); Mean Platelet Volume 7.5 fl (7.4-10.4); Monocytes # 0.4 K/mm3 (0.1-1.0); Neutrophils # 4.7 K/mm3 (1.8-7.8); Neutrophils % 71.7 % (37.0-80.0); Platelet Count 271 K/mm3 (142-424); Red Blood Count 5.23 M/mm3 (4.60-6.20); Red Cell Distribution Width 15.7 % (11.5-17.5); White Blood Count 6.5 K/mm3 (4.8-10.8)
[2024-09-10 11:45] LABS: Activated Partial Thrombo Time 30.4 seconds (22.8-30.6); INR 0.93 (0.9-1.1); Prothrombin Time 10.5 seconds (10.1-12.5)
[2024-09-10 12:32] LABS: HIV (1&2) Antibody Rapid NONREACTIVE (NONREACTIVE)
[2024-09-10] MEDS: DALBAVANCIN HCL 1,500 MG in DEXTROSE 5 % IN WATER 250 ML 500 MG IV (13:10)
[2024-09-10 15:01] LABS: Reflex Lactic Add Lactic Reflex
[2024-09-11 08:22] LABS: HCV Ab Non Reactive (Non Reactive)
== END 2024-09-10 13:57 | disposition home or self-care (01) ==
PROVIDERS: Emergency Provider Emergency Medicine; PCP Nurse Practitioner Family
DX: L03.115 Cellulitis of right lower limb (principal)
CPT/HCPCS: 80053; 83605; 85025; 85610; 85730; 86803; 87040; 87389; 96374; 99283; J0875; J7060

== ENCOUNTER 2024-09-28 12:52 | Emergency (ER) | payer MEDICARE, SELFPAY ==
[2024-09-28 12:53] VITALS: BP 195/88; PULSE 81; RESP 16; TEMP 36.7; O2SAT 99; BMI 25.8
[2024-09-28 13:31] VITALS: BP 167/67; PULSE 82; O2SAT 99
[2024-09-28 14:01] VITALS: BP 156/76; PULSE 76; O2SAT 95
--- NOTE | 2024-09-28 14:19 | PC.NURSE ---
VASCULAR NOTIFIED OF DOPPLER PT PLACED IN GOWN
--- NOTE | 2024-09-28 14:56 | ED_ITS ---
Discharge Plan Disposition Patient Disposition: Home, Self-Care Condition: Good Prescriptions Prescriptions: New cephalexin 500 mg capsule 500 mg PO Q6H 10 Days Qty: 40 0RF No Action levofloxacin 750 mg tablet 750 mg PO DAILY Qty: 7 0RF atorvastatin 80 mg tablet 80 mg PO HS Qty: 90 2RF clopidogrel 75 mg tablet See Rx Instructions .ROUTE .COMPLEX Qty: 90 0RF Dose Instruction: Take 1 tablet by mouth once daily Rx Instructions: Take 1 tablet by mouth once daily ropinirole 1 mg tablet See Rx Instructions .ROUTE .COMPLEX Qty: 60 0RF Dose Instruction: TAKE 1 TABLET BY MOUTH AT BEDTIME INCREASE TO 2 TABLETS AFTER 7 DAYS IF NEEDED Rx Instructions: TAKE 1 TABLET BY MOUTH AT BEDTIME INCREASE TO 2 TABLETS AFTER 7 DAYS IF NEEDED clindamycin HCl 300 mg capsule 450 mg PO TID 7 Days Qty: 32 0RF Referrals Follow up/Referrals: Simon Mccoy APRN [Primary Care Provider] - See instructions Activity Restrictions/Add. Instructions Additional Instructions/Restrictions: As discussed please take antibiotics as prescribed. Return to ED if symptoms worsen. Otherwise follow-up with a primary care provider. Clinical Impressions Clinical Impression: Cellulitis of right leg Instructions Patient Instructions: Cellulitis Print Language Print Language: Scottish Discharge ED Provider: Jace Casarez General Adult HPI General Chief complaint: Extremity Problem,Nontraumatic Stated complaint: R foot leg pain Time Seen by Provider: 09/28/24 12:57 Mode of Arrival: Wheelchair Source of Information: Patient and Spouse Limitations: No Limitations Description of Symptoms (Recalled from ER Triage Doc. by RN): Pt here for worsening pain in right lower leg. Pt treated recently for cellulitis of that leg. Lower leg red and has some blisters. Denies fever. History of Present Illness HPI narrative: 69yoM patient presents with a chief complaint RLE redness and pain. He was last seen at the facility approximately two weeks ago for the same issue. The patient has a history of borderline diabetes, strokes, heart attack, and vascular disease. He underwent an amputation of his other leg a little over a year ago due to vascular disease. The patient's caregiver reports that he has been diagnosed with cellulitis in the past. H PAD, Left AKA. He denies any fever or other symptoms besides the leg issue. The patient has previously been treated with oral and IV medications for the leg issue. The oral medication, given three months ago, was reported to be more effective than the IV medication administered during his last visit. Denies other symptoms or concerns at this time Please note that above description of symptoms, in this electronic medical record under categorization of recalled from ER triage doctor by RN are reflective of an initial nursing assessment, however, is not reflective of my full history and physical exam that was personally taken and clarified. Consequentially, this preceding description of symptoms, which may include the patient's categorized chief complaint in the EMR, do not reflect my personal clinical impression, and the ultimate description of history of present illness and patient stated complaints should be deferred to this section of the note. Unless stated otherwise or congruent with this section of the note, additional signs, symptoms, or incongruence should be interpreted as inaccurate with my clinical impression. Related Data Previous Rx's ?Medication ?Instructions ?Recorded levofloxacin 750 mg tablet 750 mg PO DAILY #7 tabs 02/12/24 atorvastatin 80 mg tablet 80 mg PO HS #90 tabs 04/29/24 clindamycin HCl 300 mg capsule 450 mg (1.5 x 300 mg) PO TID 7 06/12/24 days #32 caps clopidogrel 75 mg tablet See Rx Instructions .Route 07/28/24 .COMPLEX #90 tabs ropinirole 1 mg tablet See Rx Instructions .Route 09/21/24 .COMPLEX #60 tabs cephalexin 500 mg capsule 500 mg PO Q6H 10 days #40 caps 09/28/24 Allergies Allergy/AdvReac Type Severity Reaction Status Date / Time No Known Allergies Allergy Verified 02/12/24 14:13 [facility] Disclaimer: The information contained in this section may have been updated after the patient was seen, as this information can be updated by other users. Medical History Left above-knee amputee Social History Smoking Status: Former smoker tobacco type: cigarettes packs per day: 1 alcohol intake: former substance use type: denies use current occupational status: unemployed Travel in the last 8 weeks: None household members: other Other Medical History Have you received the Flu Vaccine for this season: Yes Have you received the Pneumonia Vaccine: No ROS Obtained: Yes Systems reviewed as appropriate & no additional complaints except as documented Physical Exam General General appearance: alert and in no apparent distress Head Head exam: atraumatic and normocephalic Eye Eye exam: Present normal appearance and EOMI ENT ENT exam: Present normal exam Neck Neck exam: Present normal inspection Chest Chest inspection: Present normal inspection and symmetric chest wall rise Respiratory Respiratory exam: Present normal lung sounds bilaterally Cardiovascular Cardiovascular exam: Present regular rate, normal rhythm and normal heart sounds Abdominal Exam Abdominal exam: Present soft and normal bowel sounds; Absent distention or tenderness exam: Present deferred Extremities Exam Extremities exam: Present normal inspection, full ROM, tenderness (RLE at calf/foot) and other (Left AKA) Back Exam Back exam: Present normal inspection Neurological Exam Neurological exam: Present alert and oriented X3 Psychiatric Psychiatric exam: Present normal affect and normal mood Skin Skin exam: Present warm, dry, intact and normal color; Absent rash Medical Decision Making Medical Records Medical records reviewed: Yes I reviewed the patient's medical records. Screening: Per USPSTF and CDC recommendations, given the prevalence of disease in our region, it is our hospital?s policy to screen for HIV and viral Hepatitis for all patients aged 18 and over and those with ongoing risk factors. Donnell Inquiry Pt receiving controlled substance: No Donnell was queried for this patient: No Vital Signs: 09/28/24 12:53 09/28/24 13:31 09/28/24 14:01 Temperature 98.1 F Temperature Source Oral Pulse Rate 82 76 Pulse Rate [Brachial] 81 Respiratory Rate 16 Blood Pressure 167/67 H 156/76 H Blood Pressure [Right Radial Artery] 195/88 H Blood Pressure Mean [Right Radial Artery] 123 Blood Pressure Source [Right Radial Artery] Automatic Cuff 02 Sat by Pulse Oximetry 99 99 95 Oxygen Delivery Method Room Air Room Air Room Air Orders (Tests/Meds): ORDERS Category Date Time Status HIV (1&2) Antibody Rapid Stat Lab 09/28/24 13:16 Ordered Hep C Ab with Reflex to RNA Stat Lab 09/28/24 13:16 Ordered CA venous doppler LE RT Stat Y 09/28/24 14:17 Completed Medical Decision Narrative: Patient with history and exam per above presenting for evaluation of right lower extremity redness and pain Diagnoses considered include cellulitis, DVT, abscess ED workup and treatment included: As above Given no systemic symptoms laboratory workup deferred Imaging was independently visualized and interpreted by me, significant for [id number] ultrasound right lower extremity significant for cellulitis, no noted abscess. Venous duplex with no reported DVT Please refer to radiology report for full details. My clinical impression at this time is most consistent with cellulitis, prescribing Keflex as patient has preference for oral antibiotics at this time. Patient to follow-up with primary care provider. Given instructions to return to ED if symptoms worsen. Discharged home in hemodynamically stable vitals. Patient is agreeable with this plan. I discussed my clinical impression with patient and answered all questions. At this time, the evidence for any other entities in the differential is insufficient to warrant any further testing or ED observation. This was explained to the patient. The patient was advised that persistent or worsening symptoms require further evaluation. Critical Care Critical Care Time Critical Care Time: No
[2024-09-28 15:22] VITALS: BP 177/82; PULSE 88; RESP 16; TEMP 36.6
== END 2024-09-28 15:24 | disposition home or self-care (01) ==
PROVIDERS: Emergency Provider Student in an Organized Health Care Education/Training Program; PCP Nurse Practitioner Family
DX: L03.115 Cellulitis of right lower limb (principal); M79.661 Pain in right lower leg
CPT/HCPCS: 93971; 99283

== ENCOUNTER 2024-10-16 11:42 | Observation (INO) | payer MEDICARE, SELFPAY ==
--- NOTE | 2024-10-16 11:56 | PC.NURSE ---
arrived by w/c from ED admissions
[2024-10-16 12:00] VITALS: BP 158/91; PULSE 97; RESP 15; TEMP 36.8; O2SAT 98
--- NOTE | 2024-10-16 12:03 | HMH.PHAINT1 ---
Pharmacy Intervention Comments: Home medication list verified using list from outpatient pharmacy
[2024-10-16 13:20] VITALS: BMI 25.7
[2024-10-16] MEDS: PIPERCILLIN/TAZO 3.375 GM in 0.9 % SODIUM CHLORIDE 50 ML IV ×2 (14:06→19:52)
[2024-10-16 14:13] LABS: Albumin Level 4.2 g/dl (3.5-5.0); Chloride 94 mmol/L (98-107); Sodium 137 mmol/L (136-145)
[2024-10-16 14:14] LABS: Potassium 3.4 mmoL/L (3.5-5.1)
[2024-10-16 14:16] LABS: Alanine Aminotransferase 18 U/L (12-78); Anion Gap 9.4 mEq/L (5-15); Aspartate Amino Transferase 25 U/L (17-59); Blood Urea Nitrogen 12 mg/dl (9-20); Carbon Dioxide 37 mmol/L (22.0-30.0); Creatinine Clearance Estimated 73 mL/min (50-200); Estimated Glomerular Filt Rate 112 ml/min (>60); GFR (African American) 136 ML/MIN (>60)
[2024-10-16 14:17] LABS: Albumin/Globulin Ratio 1.4 (1.1-1.8); Alkaline Phosphatase 120 U/L (38-126); Bilirubin,Total 0.6 mg/dl (0.2-1.3); Calcium 8.6 mg/dl (8.4-10.2); Glucose 148 mg/dl (74-100); Total Protein,Serum 7.2 g/dl (6.3-8.2)
[2024-10-16 14:22] LABS: C-Reactive Protein 6.3 mg/L (0-4)
[2024-10-16 14:29] LABS: Basophils # 0.1 K/mm3 (0-0.2); Eosinophils # 0.5 K/mm3 (0.0-0.4); Eosinophils % 6.4 % (0.1-12.0); Hematocrit 43.1 % (42.0-52.0); Hemoglobin 14.1 g/dL (14.1-18.0); Lymphocytes # 1.3 K/mm3 (0.7-4.5); Lymphocytes % 15.7 % (10-50); Mean Corpuscular HGB Conc 32.8 g/dL (31.8-35.4); Mean Corpuscular Volume 85.3 fl (80-94); Mean Platelet Volume 7.3 fl (7.4-10.4); Monocytes # 0.5 K/mm3 (0.1-1.0); Monocytes % 5.8 % (1.7-9.3); Neutrophils # 5.8 K/mm3 (1.8-7.8); Neutrophils % 71.1 % (37.0-80.0); Platelet Count 302 K/mm3 (142-424); Red Blood Count 5.05 M/mm3 (4.60-6.20); Red Cell Distribution Width 16.1 % (11.5-17.5); White Blood Count 8.2 K/mm3 (4.8-10.8)
[2024-10-16] MEDS: VANCOMYCIN/WATER FOR INJ (PEG) 1.25 GM/250 ML PIGGYBACK IV (14:36)
--- NOTE | 2024-10-16 14:38 | EXP.PHA.CONS ---
Pharmacy Consult Date: 10/16/24 Time: 14:39 Referring provider: DR KRAUS Reason for Consult:: VANCOMYCIN DOSING CONSULT Allergies Allergy/AdvReac Type Severity Reaction Status Date / Time No Known Allergies Allergy Verified 10/16/24 10:50 Home Medications ?Medication ?Instructions ?Recorded ?Confirmed ?Type atorvastatin 80 mg tablet 80 mg PO HS #90 tabs 04/29/24 10/16/24 Rx clopidogrel 75 mg tablet 75 mg PO DAILY 10/16/24 10/16/24 History ropinirole 1 mg tablet 2 mg PO HS 10/16/24 10/16/24 History New Prescriptions to Start Prescriptions: Height: 1.68 m Weight: 72.157 kg Laboratory Results:: Laboratory Results - last 24 hr 10/16/24 13:55: WBC 8.2, RBC 5.05, Hgb 14.1, Hct 43.1, MCV 85.3, MCH 28.0, MCHC 32.8, RDW 16.1, Plt Count 302, MPV 7.3 L, Neut % (Auto) 71.1, Lymph % (Auto) 15.7, [place] % (Auto) 5.8, Eos % (Auto) 6.4, Baso % (Auto) 1.0, Neut # (Auto) 5.8, Lymph # (Auto) 1.3, [place] # (Auto) 0.5, Eos # (Auto) 0.5 H, Baso # (Auto) 0.1, Sodium 137, Potassium 3.4 L, Chloride 94 L, Carbon Dioxide 37 H, Anion Gap 9.4, BUN 12, Creatinine 0.70, Estimated Creat Clear 73, Estimated GFR 112, Est GFR ( Amer) 136, Glucose 148 H, Calcium 8.6, Total Bilirubin 0.6, AST 25, ALT 18, Alkaline Phosphatase 120, C-Reactive Protein 6.3 H, Total Protein 7.2, Albumin 4.2, Globulin 3.0, Albumin/Globulin Ratio 1.4 Medical History: Medical History (Updated 09/28/24 @ 14:57 by Jace Casarez DO) Left above-knee amputee Assessment and Plan Assessment and plan all Dx Assessment and Plan for all problems:: Pharmacokinetic dosing service Objective: Age: 69 yo Serum creatinine: 1 mg/dL Height: 66.1 Inches Weight (kg): 72.157 Diagnosis: CELLULITIS Assessment: IBW (kg): 64.03 Dosing wt(kg): 72.157 Estimated Creatinine clearance (ml/min): 64.9 CRCL method: Cockcroft and Gault using ibw(default). Drug selected: Vancomycin Loading dose (mg): 1250 MG Vd (liters): 50.5 (factor used: 0.7 L/kg) Juan (hr-1): 0.058 Half life (hrs): 11.95 CLvanco=?? 2.929 L/hr Recommended dose: 1250 mg Interval: 18 hrs Infusion time (hrs): 2.0 Predicted peak (mcg/mL): 36.1 Predicted trough (mcg/mL): 14.27 Total body weight is being used for vancomycin dosing. Recommendations: Give Vancomycin 1250 mg q 18 hrs with an expected Cpeak of 36.1 mcg/ml and an expected Ctrough of 14.27 mcg/ml AUC 0-24 /ADRIAN Data: ADRIAN 0.5 mcg/mL:?? AUC/ADRIAN:? 1138.0 ADRIAN 1.0 mcg/mL:?? AUC/ADRIAN:? 569.0 --------- ADRIAN 1.5 mcg/mL:?? AUC/ADRIAN:? 379.3 ADRIAN 2.0 mcg/mL:?? AUC/ADRIAN:? 284.5 Thank you for the consult
--- NOTE | 2024-10-16 15:10 | CA_ITS ---
FINAL REPORT TECHNIQUE: Duplex color Doppler with spectral analysis performed of the lower extremity. CLINICAL HISTORY: LAKA, RIGHT LEG REDDNESS, TROPHIC NAIL, CELLULITIS-UNHEALING ,CAD, EXSMOKER, HX-STROKE FINDINGS: RIGHT LOWER EXTREMITY: Velocities cm/sec: CAMPUS SECURITY DIRECTOR: 208 Proximal femoral 310 INTELLIGENCE CHIEF: 147 JONNA: 18 Peroneal: 32 There are monophasic waveforms in the right common femoral artery with elevated velocity of 208 cm/s. Findings are consistent with significant inflow disease. There is occlusion of the right proximal superficial femoral artery and the popliteal artery. There is monophasic flow in the peroneal artery, posterior tibial artery and anterior tibial artery. IMPRESSION: Findings consistent with significant inflow disease. Occlusion of the proximal SFA and popliteal artery. Findings can be further evaluated with catheter angiogram. Reviewed, Interpreted and Dictated by Cameron Pleitez III, MD Transcribed by Chaya Schaefer Authenticated and . [facility]
--- NOTE | 2024-10-16 15:22 | HMH.ITSTN ---
pt having duplex exam at this time; RN to call when finished.
[2024-10-16 15:26] LABS: Hemoglobin A1C 6.4 % (4.0-6.0)
[2024-10-16 15:37] LABS: Erythrocyte Sedimentation Rate 20 mm/hr (0-20)
[2024-10-16 16:00] VITALS: BP 142/94; PULSE 105; RESP 15; TEMP 37; O2SAT 97
--- NOTE | 2024-10-16 16:08 | CT_ITS ---
PROCEDURE INFORMATION: Exam: CTA Abdominal Aorta and Bilateral Lower Extremities (Run-off) With Contrast Exam date and time: 10/16/2024 4:17 PM Age: 69 years old Clinical indication: Screening exam; Purpose: Eval for vascular insufficiency TECHNIQUE: Imaging protocol: Computed tomographic angiography of the of the abdominal aorta, pelvis and bilateral lower extremities with contrast. 3D rendering (Not supervised by radiologist): MIP and/or 3D reconstructed images were created by the technologist. Radiation optimization: All CT scans at this facility use at least one of these dose optimization techniques: automated exposure control; mA and/or kV adjustment per patient size (includes targeted exams where dose is matched to clinical indication); or iterative reconstruction. Contrast material: ISOVUE 370; Contrast volume: 120 ml; Contrast route: INTRAVENOUS (IV); COMPARISON: No relevant prior studies available. FINDINGS: Pulmonary arteries: There are bilateral common iliac artery stents. Postsurgical changes are noted of the left femoral vasculature. Aorta: There is atherosclerotic disease of the visualized aorta and its major branch vessels. Celiac trunk and mesenteric arteries: No occlusion or significant stenosis. Renal arteries: No occlusion or significant stenosis. Right iliac arteries: The right external iliac artery is significantly stenotic. Right femoral/popliteal arteries: The right superficial femoral artery occludes almost immediately. The right popliteal artery reconstitutes. Right infrapopliteal arteries: No occlusion or significant stenosis. Left iliac arteries: Moderate atherosclerotic disease of the left common and external iliac arteries. Left femoral/popliteal arteries: The left superficial femoral artery is occluded. Left popliteal artery is absent. Left infrapopliteal arteries: Left infrapopliteal arteries are absent. Lungs: Scattered areas of bronchial wall thickening which are likely chronic inflammatory. A few areas of subpleural reticulation are noted, nonspecific. Liver: No mass. Gallbladder and biliary ducts: Unremarkable. No calcified stones. No ductal dilation. Pancreas: Unremarkable. No mass. No ductal dilation. Spleen: Normal. No splenomegaly. Adrenal glands: Normal. No mass. Kidneys and ureters: Normal. No mass. Stomach and bowel: There is mild rectal wall thickening. There is large volume stool throughout the colon. Appendix: No evidence of appendicitis. Urinary bladder: There is moderate distention of the urinary bladder. Reproductive: Unremarkable as visualized. Intraperitoneal space: Unremarkable. No free air. No significant fluid collection. Lymph nodes: No lymphadenopathy. Bones/joints: There is diffuse degenerative disease of the visualized osseous structures. The patient is status post left aweow-yvo-usck amputation. Soft tissues: Mild soft tissue edema of the lower extremities is noted. IMPRESSION: 1. Significantly narrowed right external iliac artery without occlusion. 2. Proximal occlusion of the superficial femoral artery with reconstitution at the level of the popliteal and reasonable flow through the infrapopliteal vessels on the right. 3. Status post left [id number] amputation with associated vascular ligation and reasonable inflow.
[2024-10-16] MEDS: IOPAMIDOL-370 (76%);100ML BOTTLE 120 ML IV (16:38)
[2024-10-16] MEDS: 0.9 % SODIUM CHLORIDE 50 ML VIAL IV (16:38)
[2024-10-16] MEDS: SODIUM CHLORIDE 0.9% 10ML SYR (RAD ONLY) 10 ML IV ×3 (16:39→20:40)
--- NOTE | 2024-10-16 16:46 | PC.WOUNDNOTE ---
(R) foot with erythema, drainage, slothing (RLE) with erythema, slothing and drainage
--- NOTE | 2024-10-16 17:27 | EXP.HP ---
History of Present Illness *History of present illness: Chavo Peres is a 69-year-old male with a medical history significant for PAD s/p left AKA, hyperlipidemia, restless leg syndrome who presents from PCPs office due to concern of worsening cellulitis. I spoke to Dr. Calvo over the phone who was evaluating patient in his office today. He had been having more than 6 months of right lower extremity erythema which had been recurrently treated with antibiotics. Dr. Calvo was today concerned about worsening right lower extremity erythema, drainage, skin sloughing. I discussed case with him I decision was made to admit patient for further evaluation and management. On arrival, patient right lower extremity has diffuse swelling, erythema, skin sloughing, serosanguineous drainage below the knee. He states this has been going on for the past weeks that has progressively gotten worse and has not gotten better with antibiotics. He has had a left AKA many years ago. Workup significant for WBC 8.2, CRP 6.3. Arterial duplex showed minimal to no blood flow in the right femoral artery. Follow-up CTA right lower extremity with runoff showed significant narrowing of right external iliac artery, proximal occlusion of superior femoral artery with reconstitution at popliteal and infrapopliteal vessels. I discussed case with Dr. Armas, her library science instructor, and decision was made to perform peripheral catheterization tomorrow afternoon. [facility] Disclaimer: The information contained in this section may have been updated after the patient was seen, as this information can be updated by other users. Medical History Left above-knee amputee Family History (Updated 10/16/24 @ 12:31 by Diana Kuo RN) Other COPD (chronic obstructive pulmonary disease) Heart attack Social History (Updated 10/16/24 @ 12:31 by Diana Kuo RN) Smoking Status: Former smoker tobacco type: cigarettes packs per day: 1 alcohol intake: former substance use type: denies use current occupational status: unemployed Travel in the last 8 weeks: None household members: other Other Medical History Have you received the Flu Vaccine for this season: No Have you received the Pneumonia Vaccine: No Meds Home Medications and Allergies Home Medications ?Medication ?Instructions ?Recorded ?Confirmed ?Type atorvastatin 80 mg tablet 80 mg PO HS #90 tabs 04/29/24 10/16/24 Rx clopidogrel 75 mg tablet 75 mg PO DAILY 10/16/24 10/16/24 History ropinirole 1 mg tablet 2 mg PO HS 10/16/24 10/16/24 History New Prescriptions to Start Prescriptions: Allergies Allergy/AdvReac Type Severity Reaction Status Date / Time No Known Allergies Allergy Verified 10/16/24 10:50 Exam Data for Last 24 hours Vital signs and Labs for Last 24 Hours: Temp Pulse Resp BP Pulse Ox O2 Del Method 98.3 F 97 H 15 158/91 H 98 Room Air 10/16/24 12:00 10/16/24 12:00 10/16/24 12:00 10/16/24 12:00 10/16/24 12:00 10/16/24 13:46 Laboratory Results - last 24 hr 10/16/24 13:55: WBC 8.2, RBC 5.05, Hgb 14.1, Hct 43.1, MCV 85.3, MCH 28.0, MCHC 32.8, RDW 16.1, Plt Count 302, MPV 7.3 L, Neut % (Auto) 71.1, Lymph % (Auto) 15.7, [place] % (Auto) 5.8, Eos % (Auto) 6.4, Baso % (Auto) 1.0, Neut # (Auto) 5.8, Lymph # (Auto) 1.3, [place] # (Auto) 0.5, Eos # (Auto) 0.5 H, Baso # (Auto) 0.1, ESR 20, Sodium 137, Potassium 3.4 L, Chloride 94 L, Carbon Dioxide 37 H, Anion Gap 9.4, BUN 12, Creatinine 0.70, Estimated Creat Clear 73, Estimated GFR 112, Est GFR ( Amer) 136, Glucose 148 H, Hemoglobin A1c 6.4 H, Calcium 8.6, Total Bilirubin 0.6, AST 25, ALT 18, Alkaline Phosphatase 120, C-Reactive Protein 6.3 H, Total Protein 7.2, Albumin 4.2, Globulin 3.0, Albumin/Globulin Ratio 1.4 I & O for Last 24 hours: Intake & Output 10/13/24 10/14/24 10/15/24 10/16/24 23:59 23:59 23:59 23:59 Intake Total 570 / 570 Balance 570 / 570 Weight 72.157 kg Constitutional Constitutional: no acute distress Comments: Right lower extremity has diffuse swelling, erythema, skin sloughing, serosanguineous drainage below the knee. Toes cool to the touch. Minimal right pedal pulses. *Routine HEENT Exam Head: Present normocephalic Eye: Present EOMI and PERRL ENT: Present mucous membranes moist *Routine Neck Exam Neck: Present supple; Absent lymphadenopathy *Routine Respiratory Exam Respiratory: Present CTA bilaterally *Routine Cardiovascular Exam Cardiovascular: Present RRR *Routine Abdominal Exam Abdominal: Present soft and normoactive bowel sounds; Absent tenderness *Routine Rectal Exam Rectal:: deferred *Routine Genitalia Exam Genitalia:: deferred *Routine Extremities Exam Extremities: Absent cyanosis, clubbing or edema *Routine Skin Exam Skin: Present warm; Absent rash *Routine Neurological Exam Neurological: Present alert and oriented X3 Assessment and Plan *Assessment and plan (1) PAD (peripheral artery disease): Status: Acute Category: Medical Code(s): I73.9 - Peripheral vascular disease, unspecified Plan Chavo Peres is a 69-year-old male with a medical history significant for PAD s/p left AKA, hyperlipidemia, restless leg syndrome who presents from PCPs office due to concern of worsening cellulitis. I spoke to Dr. Calvo over the phone who was evaluating patient in his office today. He had been having more than 6 months of right lower extremity erythema which had been recurrently treated with antibiotics. Dr. Calvo was today concerned about worsening right lower extremity erythema, drainage, skin sloughing. I discussed case with him I decision was made to admit patient for further evaluation and management. On arrival, patient right lower extremity has diffuse swelling, erythema, skin sloughing, serosanguineous drainage below the knee. He states this has been going on for the past weeks that has progressively gotten worse and has not gotten better with antibiotics. He has had a left AKA many years ago. Workup significant for WBC 8.2, CRP 6.3. Arterial duplex showed minimal to no blood flow in the right femoral artery. Follow-up CTA right lower extremity with runoff showed significant narrowing of right external iliac artery, proximal occlusion of superior femoral artery with reconstitution at popliteal and infrapopliteal vessels. I discussed case with Dr. Armas, her library science instructor, and decision was made to perform peripheral catheterization tomorrow afternoon. #PAD #Significant narrowing of right external iliac artery #Proximal occlusion of superior femoral artery #Right lower extremity erythema, swelling, skin sloughing ? CTA right lower extremity with runoff revealed above findings. ? Discussed with Dr. Armas who will perform peripheral catheterization with stenting of the right external iliac artery tomorrow. ? Therapeutic Lovenox until procedure tomorrow. Will likely need transitioning to Xarelto tomorrow. ? Resumed home aspirin 81 mg, atorvastatin 80 mg. ? Initially started on vancomycin, Zosyn out of concern for cellulitis before arterial studies came back. ? Continue Zosyn, discontinued vancomycin pending wound cultures. ? Hemoglobin A1c 6.4. Follow-up lipid panel. Patient is a former smoker. ? N.p.o. at midnight. Full code Therapeutic Lovenox
[2024-10-16] MEDS: ENOXAPARIN 80MG/0.8ML SYRINGE 70 MG SUBCUT (18:21)
[2024-10-16] MEDS: HYDROCODONE/APAP 5/325 MG TABLET 2 TAB PO (18:26)
[2024-10-16 19:28] VITALS: BP 128/84; PULSE 94; RESP 16; TEMP 36.5; O2SAT 97
[2024-10-16] MEDS: ATORVASTATIN 40MG TABLET 80 MG PO (20:39)
[2024-10-16] MEDS: ROPINIROLE 1MG TABLET 2 MG PO (20:39)
[2024-10-17] VITALS (20 sets, daily range): BP systolic 111–162; BP diastolic 62–100; PULSE 82–129; RESP 16–20; TEMP 36.5–37.4; O2SAT 91–99; BMI 25.5
--- NOTE | 2024-10-17 | ECG_ITS ---
APPROVED REPORT Exam: Resting ECG HR:125 bpm ECG Measurements Heart Rate 125 AXES NV 167 P 81 QRSd 90 QRS 75 QT 318 T 80 QTc 392 Conclusion SINUS TACHYCARDIA LOW QRS VOLTAGE IN PRECORDIAL LEADS [QRS DEFLECTION < 1.0 mV IN CHEST LEADS] POSSIBLE RIGHT VENTRICULAR CONDUCTION DELAY [RSR (QR) IN V1/V2] ABNORMAL RHYTHM ECG UNCONFIRMED REPORT Electronically signed by : Karan Christianson MD 10/18/2024 21:20:01
--- NOTE | 2024-10-17 | IR_ITS ---
APPROVED REPORT Patient Location: Inpatient Hat Measurer: CAITLYN Ahumada RT (R) PROCEDURES Right radial arterial access Catheter placement in the right external iliac artery Right external iliac artery antegrade angiogram with unilateral runoff to the right knee Catheter placement in the left common iliac artery Left common iliac artery antegrade angiogram Catheter placed in the distal abdominal aorta Distal abdominal aortogram INDICATION [place] claudication class V, Peripheral artery disease, Known left AKA Informed consent was obtained prior to the procedure. Estimated Blood Loss: Less than 10 mls TECHNIQUE One percent lidocaine was used to anesthetize the right anterior aspect of the right wrist. The right radial artery was accessed via the Seldinger technique and a 6 [place] hydrophilic sheath was placed in the right radial artery. A PV multi curve was advanced to the right external iliac artery or external iliac artery antegrade angiography was performed with runoff into the right knee. The catheter was placed into the left common iliac artery where left common artery antegrade angiography was performed. The catheter was pulled back to the distal abdominal aorta were distal abdominal aortography was performed. Following this the apparatus was removed the sheath was removed good hemostasis was achieved using TR banding patient was transferred to the postop putting in stable condition ANGIOGRAPHIC RESULTS Distal abdominal aorta is patent There are stents in the left common and external iliac artery which are widely patent with mild to moderate in-stent restenosis. Patient is known to have a left AKA therefore no distal angiography was performed Right common and external iliac arteries are patent. The right internal iliac artery is ostially occluded Right common femoral artery is patent Right profunda femoris artery is smaller than normal and is patent with small vessel diffuse distal disease The right superficial femoral artery and right popliteal artery are occluded. The right SFA is ostially occluded and there is scant distal collateralization from the right profunda femoris with no visible distal angiographic runoff IMPRESSION Peripheral artery disease as described above PLAN 1. Recommend referral to vascular surgery for consideration of above the knee amputation 2. Risk factor modification Electronically signed by : Jm Armas MD 10/28/2024 14:28:07
[2024-10-17] MEDS: HYDROCODONE/APAP 5/325 MG TABLET 2 TAB PO (02:05)
[2024-10-17] MEDS: PIPERCILLIN/TAZO 3.375 GM in 0.9 % SODIUM CHLORIDE 50 ML IV ×2 (04:07→20:44)
[2024-10-17] MEDS: ENOXAPARIN 80MG/0.8ML SYRINGE 70 MG SUBCUT (04:08)
[2024-10-17] MEDS: SODIUM CHLORIDE 0.9% 10ML SYR (RAD ONLY) 10 ML IV ×2 (04:21→04:45)
--- NOTE | 2024-10-17 05:23 | PC.NURSE ---
10/17/24 0520: Pt. is alert and orientated x 4. He has a left leg AKA, He has been seated in his W/C most of this shift. I helped him into the bed and he was there for about 40 minutes and was in anear panic state. He c/o indigestion and his RLE hurt. He got out of the bed and back to W/C. He states that he can't lay down. I also offered him the recliner chair and he refused. Rle is red, macerated, erythema, skin sloughing off, fakey, and has drainage. He states it has been like this for several months and has gotten worse. Pt. not able to bear weight on right leg and has no prostheis here at the hospital with him. Personal items and call rand in reach.
[2024-10-17 08:09] LABS: Basophils # 0.1 K/mm3 (0-0.2); Eosinophils # 0.6 K/mm3 (0.0-0.4); Eosinophils % 6.6 % (0.1-12.0); Hematocrit 41.9 % (42.0-52.0); Hemoglobin 14.3 g/dL (14.1-18.0); Lymphocytes # 1.8 K/mm3 (0.7-4.5); Lymphocytes % 19.1 % (10-50); Mean Corpuscular HGB Conc 34.1 g/dL (31.8-35.4); Mean Corpuscular Hemoglobin 28.3 pg (27.0-31.2); Mean Corpuscular Volume 83.1 fl (80-94); Mean Platelet Volume 7.1 fl (7.4-10.4); Monocytes # 0.6 K/mm3 (0.1-1.0); Monocytes % 6.2 % (1.7-9.3); Neutrophils # 6.3 K/mm3 (1.8-7.8); Platelet Count 306 K/mm3 (142-424); Red Blood Count 5.05 M/mm3 (4.60-6.20); Red Cell Distribution Width 16.2 % (11.5-17.5); White Blood Count 9.4 K/mm3 (4.8-10.8)
[2024-10-17 08:23] LABS: Albumin Level 4.1 g/dl (3.5-5.0); Chloride 99 mmol/L (98-107); Potassium 3.8 mmoL/L (3.5-5.1); Sodium 137 mmol/L (136-145)
[2024-10-17 08:24] LABS: Hemoglobin A1C 6.4 % (4.0-6.0)
[2024-10-17 08:25] LABS: Alanine Aminotransferase 21 U/L (12-78); Aspartate Amino Transferase 29 U/L (17-59); Blood Urea Nitrogen 11 mg/dl (9-20); Creatinine Clearance Estimated 73 mL/min (50-200); Estimated Glomerular Filt Rate 112 ml/min (>60); GFR (African American) 136 ML/MIN (>60)
[2024-10-17 08:26] LABS: Albumin/Globulin Ratio 1.2 (1.1-1.8); Alkaline Phosphatase 122 U/L (38-126); Anion Gap 11.8 mEq/L (5-15); Bilirubin,Total 0.9 mg/dl (0.2-1.3); Calcium 8.7 mg/dl (8.4-10.2); Carbon Dioxide 30 mmol/L (22.0-30.0); Globulin 3.3 g/dL (1.3-3.2); Glucose 140 mg/dl (74-100); Total Protein,Serum 7.4 g/dl (6.3-8.2)
[2024-10-17 08:38] LABS: Chol/HDL Ratio 2.4 (1-3.5); Cholesterol 107 mg/dl (140-200); Direct LDL Cholesterol 41.17 mg/dL (100-129); HDL Cholesterol 44 mg/dl (40-60); Triglycerides 98 mg/dl (30-150); VLDL Cholesterol 20 mg/dL (0-40)
[2024-10-17] MEDS: MIDAZOLAM HCL 1MG/ML 5ML VIAL 1 MG IV (13:38)
[2024-10-17] MEDS: LIDOCAINE 1% 10ML MDV 20 ML IJ (13:38)
[2024-10-17] MEDS: FENTANYL 100MCG/2ML VIAL 50 MCG IV (13:38)
[2024-10-17] MEDS: IOPAMIDOL-250 (51%) 100ML BOT 70 ML IV (13:50)
--- NOTE | 2024-10-17 14:15 | PC.NURSE ---
at heart cath
[2024-10-17] MEDS: BISACODYL 5MG TABLET 10 MG PO (15:58)
[2024-10-17] MEDS: POLYETHYLENE GLYCOL 3350 17 GM PACKET PO (15:58)
[2024-10-17] MEDS: BELLADONNA ALKALOIDS 60 ML ML PO (15:58)
--- NOTE | 2024-10-17 16:34 | PC.NURSE ---
pt has remained alert and oriented this shift. pt remains on room air. pt had to be placed on 2L nc after peripheral angiogram, but has since been weaned to room air. pt had peripheral angiogram performed today. wood and wood products labourer tried to access using the femoral artery, but failed. radial artery was then accessed and procedure was performed. pt IV infiltrated while in wood and wood products labourer. wood and wood products labourer made several attempts to gain venous access. After many IV sticks, it was concluded that the pt needed an IJ per yasmin. Yasmin placed a rt IJ. pt RLE remains red,warm,flaky, and weeping. pt RLE covered with cause and kerlix. femoral cath site is covered in tegaderm and gauze. radial site is covered with tegaderm and gauze. pt has tried numerous attempts to sit up, pt has been educated multiple times on importance of lying flat. pt c/o heart burn earlier and ordered GI cocktail and was administered per order. no new orders at this time. call light within reach. family @ bedside.
[2024-10-17] MEDS: ATORVASTATIN 40MG TABLET 80 MG PO (20:45)
[2024-10-17] MEDS: ROPINIROLE 1MG TABLET 2 MG PO (20:45)
[2024-10-17] MEDS: ACETAMINOPHEN 325MG TAB 650 MG PO (20:45)
--- NOTE | 2024-10-17 21:20 | P.EN_ITS ---
<Statement entered by Madhu Benson MD - 10/18/24 22:46> I personally examined patient and agree with BOX INSPECTOR's plan of care. Problem: Nurse notified me that patient's heart rate was above 130, able to see him approximately 20 minutes later after being in a. critical situation I could not get to his room until the heart rate now down below 115 , exam. Patient is post procedure that they were not able to place the stents to open up the vasculature to the lower right leg, foot is slightly bluish mild amount of edema patient is sitting in wheelchair with foot down. Mentally: Patient is alert oriented we had a very good discussion, he said because of his past with having 3 strokes that sometimes his short-term memory is not good that he forgets his friends names. He expressed to me clear understanding that that leg will not be able to be safe though.. He expressed to me no distress no shortness of breath no chest pain. Plan: Patient is stable will not change anything at this time as far as medication. Patient given reassurance that if he is having any difficulty pain not able to sleep to let the nurse know that I will be in to see him try to provide him something to correct any problem he has while he is here. Have no concerns about presently with the patient he seems to be stable and I do not expect any significant changes
--- NOTE | 2024-10-17 21:20 | P.PN_ITS ---
Subjective *Date: 10/18/24 *Time: 16:39 Exam Data for Last 24 hours Vital signs and Labs for Last 24 Hours: Temp Pulse Resp BP Pulse Ox O2 Del Method O2 Flow Rate 99.3 F 129 H 18 138/93 H 95 Room Air 2 10/17/24 20:00 10/17/24 20:00 10/17/24 20:00 10/17/24 20:00 10/17/24 20:00 10/17/24 20:00 10/17/24 14:50 Laboratory Results - last 24 hr 10/17/24 08:02: WBC 9.4, RBC 5.05, Hgb 14.3, Hct 41.9 L, MCV 83.1, MCH 28.3, MCHC 34.1, RDW 16.2, Plt Count 306, MPV 7.1 L, Neut % (Auto) 67.0, Lymph % (Auto) 19.1, [place] % (Auto) 6.2, Eos % (Auto) 6.6, Baso % (Auto) 1.0, Neut # (Auto) 6.3, Lymph # (Auto) 1.8, [place] # (Auto) 0.6, Eos # (Auto) 0.6 H, Baso # (Auto) 0.1, Sodium 137, Potassium 3.8, Chloride 99, Carbon Dioxide 30, Anion Gap 11.8, BUN 11, Creatinine 0.70, Estimated Creat Clear 73, Estimated GFR 112, Est GFR ( Amer) 136, Glucose 140 H, Hemoglobin A1c 6.4 H, Calcium 8.7, Total Bilirubin 0.9, AST 29, ALT 21, Alkaline Phosphatase 122, Total Protein 7.4, Albumin 4.1, Globulin 3.3 H, Albumin/Globulin Ratio 1.2, Triglycerides 98, Cholesterol 107 L, LDL Cholesterol Direct 41.17 L, VLDL Cholesterol 20, HDL Cholesterol 44, Cholesterol/HDL Ratio 2.4 I & O for Last 24 hours: Intake & Output 10/14/24 10/15/24 10/16/24 10/17/24 23:59 23:59 23:59 23:59 Intake Total 810 / 810 640 / 640 Output Total 325 / 325 500 / 500 Balance 485 / 485 140 / 140 Weight 72.157 kg 72.21 kg Microbiology Reports for the Last 24 Hours: Microbiology 10/16/24 18:18 Leg,Right Gram Stain - Final 10/16/24 18:18 Leg,Right Wound Culture - Preliminary Constitutional Constitutional: no acute distress Comments: Constitutional Constitutional: no acute distress Comments: Right lower extremity has diffuse swelling, erythema, skin sloughing, serosanguineous drainage below the knee. Toes cool to the touch. Minimal right pedal pulses. *Routine HEENT Exam Head: Present normocephalic Eye: Present EOMI and PERRL ENT: Present mucous membranes moist *Routine Neck Exam Neck: Present supple; Absent lymphadenopathy *Routine Respiratory Exam Respiratory: Present CTA bilaterally *Routine Cardiovascular Exam Cardiovascular: Present RRR *Routine Abdominal Exam Abdominal: Present soft and normoactive bowel sounds; Absent tenderness *Routine Rectal Exam Rectal:: deferred *Routine Genitalia Exam Genitalia:: deferred *Routine Extremities Exam Extremities: Absent cyanosis, clubbing or edema *Routine Skin Exam Skin: Present warm; Absent rash *Routine Neurological Exam Neurological: Present alert and oriented X3 *Routine HEENT Exam Head: Present normocephalic Eye: Present EOMI and PERRL ENT: Present mucous membranes moist *Routine Neck Exam Neck: Present supple; Absent lymphadenopathy *Routine Respiratory Exam Respiratory: Present CTA bilaterally *Routine Cardiovascular Exam Cardiovascular: Present RRR *Routine Abdominal Exam Abdominal: Present soft and normoactive bowel sounds; Absent tenderness *Routine Extremities Exam Extremities: Absent cyanosis, clubbing or edema *Routine Skin Exam Skin: Present warm; Absent rash *Routine Neurological Exam Neurological: Present alert and oriented X3 Assessment and Plan *Assessment and plan (1) PAD (peripheral artery disease): Status: Acute Category: Medical Code(s): I73.9 - Peripheral vascular disease, unspecified Plan Chavo Peres is a 69-year-old male with a medical history significant for PAD s/p left AKA, hyperlipidemia, restless leg syndrome who presents from PCPs office due to concern of worsening cellulitis. I spoke to Dr. Calvo over the phone who was evaluating patient in his office today. He had been having more than 6 months of right lower extremity erythema which had been recurrently treated with antibiotics. Dr. Calvo was today concerned about worsening right lower extremity erythema, drainage, skin sloughing. I discussed case with him I decision was made to admit patient for further evaluation and management. On arrival, patient right lower extremity has diffuse swelling, erythema, skin sloughing, serosanguineous drainage below the knee. He states this has been going on for the past weeks that has progressively gotten worse and has not gotten better with antibiotics. He has had a left AKA many years ago. Workup significant for WBC 8.2, CRP 6.3. Arterial duplex showed minimal to no blood flow in the right femoral artery. Follow-up CTA right lower extremity with runoff showed significant narrowing of right external iliac artery, proximal occlusion of superior femoral artery with reconstitution at popliteal and infrapopliteal vessels. I discussed case with Dr. Armas, her criminal analyst, and decision was made to perform peripheral catheterization tomorrow afternoon. #PAD #Proximal occlusion of superior femoral artery #Right lower extremity erythema, swelling, skin sloughing ? CTA right lower extremity with runoff revealed above findings. ? Discussed with Dr. Armas, s/p peripheral catheterization 10/17/2024. Unfortunately, unable to stent superior femoral artery due to proceeding stump and therefore Dr. Armas recommended further evaluation for AKA. Reached out to , recommended outpatient follow-up with vascular surgery. They will reach out to patient on Saturday or Saturday of this coming week. ? Will plan for discharge tomorrow as it is currently late with patient preference. ? Continue Zosyn pending wound cultures. ? Hemoglobin A1c 6.4. LDL 41. Patient is a former smoker. ? Plan to discharge with Xarelto 2.5 mg twice daily, aspirin 81 mg per cardiology recommendations. Full code Lovenox 40 mg
[2024-10-18] VITALS: BP 114/69; PULSE 98; RESP 18; TEMP 37.3; O2SAT 94
--- NOTE | 2024-10-18 02:18 | PC.NURSE ---
Addendum entered by Karuna Varghese RN 10/18/24 03:30: patient agreed to lay down in bed for now Original Note: patient unwilling to lay down and relieve pressure off of bottom despite red areas - cream applied to buttocks and kaley area. IJ mirian replaced 10/17 @ 2100 - patent.
[2024-10-18 04:00] VITALS: BP 118/77; PULSE 100; PULSE 111; PULSE 90; RESP 18; TEMP 37.1; O2SAT 94; BMI 25.9
[2024-10-18] MEDS: PIPERCILLIN/TAZO 3.375 GM in 0.9 % SODIUM CHLORIDE 50 ML IV (05:14)
--- NOTE | 2024-10-18 05:45 | PC.NURSE ---
patient was requesting to get up - this RN informed him I am unable to help him by myself. patient was asked if he wanted pain meds because he was yelling and he said no. Then proceed to yell at me to get him up that i could do it alone - this rn informed him I am 9 months , and he is weak with and has trouble standing with one leg, he needs to people to properly transfer and educated that he doesn't need to yell at staff inappropriately. patient verbalized undertstanding, stated he was sorry for talking to staff members poor and agreed to wait for help to safely transfer.
[2024-10-18 08:00] VITALS: BP 123/72; PULSE 120; PULSE 131; RESP 16; TEMP 36.7; O2SAT 94
[2024-10-18] MEDS: ENOXAPARIN 40MG/0.4ML SYRINGE 40 MG SUBCUT (08:19)
[2024-10-18] MEDS: ACETAMINOPHEN 325MG TAB 650 MG PO ×2 (08:19→13:35)
[2024-10-18] MEDS: CLOPIDOGREL 75MG TAB 75 MG PO (08:19)
[2024-10-18] MEDS: CLINDAMYCIN 150MG CAPSULE 450 MG PO ×2 (08:58→13:36)
[2024-10-18] MEDS: 0.9 % SODIUM CHLORIDE 1000ML 1,000 ML 500 ML IV (09:24)
--- NOTE | 2024-10-18 09:35 | PC.NURSE ---
lab informed this RN that pt refused morning labs. hospitalist made aware. SRNA informed this RN of pt HR in 120s. pt assessed and denied chest pain, palpitations. hospitalist made aware. bolus of NS was ordered pt stated he did not want anything else through IV and did not want anymore blood taken , hospitalist made aware. after discussion w/ , patient agreed to have morning labs and agreed to the bolus. labs sent down to lab. pending results. no new orders at this time.
[2024-10-18 09:46] LABS: Chloride 94 mmol/L (98-107)
[2024-10-18 09:47] LABS: Sodium 134 mmol/L (136-145)
[2024-10-18 09:50] LABS: Anion Gap 10.7 mEq/L (5-15); Blood Urea Nitrogen 18 mg/dl (9-20); Calcium 8.1 mg/dl (8.4-10.2); Carbon Dioxide 32 mmol/L (22.0-30.0); Creatinine Clearance Estimated 74 mL/min (50-200); Estimated Glomerular Filt Rate 112 ml/min (>60); GFR (African American) 136 ML/MIN (>60); Glucose 176 mg/dl (74-100)
[2024-10-18 09:52] LABS: Basophils # 0.1 K/mm3 (0-0.2); Basophils % 0.7 % (0.1-2.0); Eosinophils # 0.3 K/mm3 (0.0-0.4); Eosinophils % 2.8 % (0.1-12.0); Hemoglobin 11.8 g/dL (14.1-18.0); Lymphocytes # 1.1 K/mm3 (0.7-4.5); Lymphocytes % 12.6 % (10-50); Mean Corpuscular HGB Conc 33.7 g/dL (31.8-35.4); Mean Corpuscular Hemoglobin 27.7 pg (27.0-31.2); Mean Corpuscular Volume 82.2 fl (80-94); Mean Platelet Volume 7.3 fl (7.4-10.4); Monocytes # 0.6 K/mm3 (0.1-1.0); Monocytes % 6.6 % (1.7-9.3); Neutrophils # 6.9 K/mm3 (1.8-7.8); Neutrophils % 77.2 % (37.0-80.0); Platelet Count 283 K/mm3 (142-424); Red Blood Count 4.25 M/mm3 (4.60-6.20); Red Cell Distribution Width 16.3 % (11.5-17.5)
[2024-10-18 09:55] LABS: Potassium 2.7 mmoL/L (3.5-5.1)
--- NOTE | 2024-10-18 09:55 | PC.NURSE ---
lab called this RN w/ adam critical lab result of K+ of 2.7. hospitalist made aware and instructed to put in order for electrolyte replacement protocol. order is now in and pharmacy fax sheet was sent per protocol.
[2024-10-18] MEDS: POTASSIUM CHLORIDE 20MEQ TAB 40 MEQ PO ×2 (10:19→13:36)
[2024-10-18 12:00] VITALS: BP 157/82; PULSE 109; PULSE 110; RESP 17; TEMP 37; O2SAT 98
--- NOTE | 2024-10-18 12:00 | PC.NURSE ---
upon changing pt, this RN noticed some bruising/swelling in femoral area where access was attempted during procedure yesterday. sand bag was placed and hospitalist was made aware. no new orders at this time. call light within reach.
[2024-10-18 12:52] LABS: Magnesium 2.1 mg/dl (1.6-2.3)
[2024-10-18 14:44] LABS: Chloride 98 mmol/L (98-107); Potassium 3.1 mmoL/L (3.5-5.1); Sodium 133 mmol/L (136-145)
[2024-10-18 14:47] LABS: Anion Gap 9.1 mEq/L (5-15); Blood Urea Nitrogen 15 mg/dl (9-20); Carbon Dioxide 29 mmol/L (22.0-30.0); Creatinine Clearance Estimated 74 mL/min (50-200); Estimated Glomerular Filt Rate 134 ml/min (>60); GFR (African American) 163 ML/MIN (>60); Glucose 128 mg/dl (74-100)
[2024-10-18 14:48] LABS: Calcium 7.8 mg/dl (8.4-10.2)
[2024-10-18 16:00] VITALS: BP 151/75; PULSE 106; RESP 18; TEMP 36.7; O2SAT 100
[2024-10-18] MEDS: POTASSIUM CHLORIDE 20MEQ/15ML UDC 40 MEQ PO (16:02)
--- NOTE | 2024-10-18 16:10 | P.DS_ITS ---
General Admission date:: 10/16/24 HPI HPI HPI: Chavo Peres is a 69-year-old male with a medical history significant for PAD s/p left AKA, hyperlipidemia, restless leg syndrome who presents from PCPs office due to concern of worsening cellulitis. I spoke to Dr. Calvo over the phone who was evaluating patient in his office today. He had been having more than 6 months of right lower extremity erythema which had been recurrently treated with antibiotics. Dr. Calvo was today concerned about worsening right lower extremity erythema, drainage, skin sloughing. I discussed case with him I decision was made to admit patient for further evaluation and management. On arrival, patient right lower extremity has diffuse swelling, erythema, skin sloughing, serosanguineous drainage below the knee. He states this has been going on for the past weeks that has progressively gotten worse and has not gotten better with antibiotics. He has had a left AKA many years ago. Workup significant for WBC 8.2, CRP 6.3. Arterial duplex showed minimal to no blood flow in the right femoral artery. Follow-up CTA right lower extremity with runoff showed significant narrowing of right external iliac artery, proximal occlusion of superior femoral artery with reconstitution at popliteal and infrapopliteal vessels. I discussed case with Dr. Armas, her marine firefighter, and decision was made to perform peripheral catheterization tomorrow afternoon. Hospital Course Hospital Course Hospital Course: Patient is a 69-year-old male with a medical history significant for PAD s/p left AKA, hyperlipidemia, restless leg syndrome who presents from PCPs office due to concern of worsening cellulitis. I spoke to Dr. Calvo over the phone who was evaluating patient in his office today. He had been having more than 6 months of right lower extremity erythema which had been recurrently treated with antibiotics. Dr. Calvo was today concerned about worsening right lower extremity erythema, drainage, skin sloughing. I discussed case with him I decision was made to admit patient for further evaluation and management. On arrival, patient right lower extremity has diffuse swelling, erythema, skin sloughing, serosanguineous drainage below the knee. He states this has been going on for the past weeks that has progressively gotten worse and has not gotten better with antibiotics. He has had a left AKA many years ago. Workup significant for WBC 8.2, CRP 6.3. Arterial duplex showed minimal to no blood flow in the right femoral artery. Follow-up CTA right lower extremity with runoff showed significant narrowing of right external iliac artery, proximal occlusion of superior femoral artery with reconstitution at popliteal and infrapopliteal vessels. I discussed case with Dr. Armas, her marine firefighter, and decision was made to perform peripheral catheterization. #Cellulitis #PAD #Proximal occlusion of superior femoral artery #Right lower extremity erythema/swelling/skin sloughing - CTA right lower extremity with runoff revealed above findings. - Hemoglobin A1c 6.4. LDL 41. Patient is a former smoker. - Discussed with Dr. Armas, s/p peripheral catheterization 10/17/2024. - Unfortunately, unable to stent superior femoral artery due to proceeding stump and therefore Dr. Armas recommended further evaluation for AKA. - Reached out to , recommended outpatient follow-up with vascular surgery. They will reach out to patient on Saturday or Saturday of this coming week. - Treated with Zosyn for cellulitis. Discharged with clindamycin after wound cultures growing rare gram positive cocci. - Patient discharged with Xarelto 2.5mg BID and aspirin 81mg, atorvastatin 40mg. Discontinued home aspirin. - Patient will follow-up with PCP and cardiology within 1 week. Exam Data for Last 24 hours Vital signs and Labs for Last 24 Hours: Temp Pulse Resp BP Pulse Ox O2 Del Method O2 Flow Rate 98.6 F 109 H 17 157/82 H 98 Room Air 2 10/18/24 12:00 10/18/24 12:00 10/18/24 12:00 10/18/24 12:00 10/18/24 12:00 10/18/24 15:00 10/17/24 14:50 Laboratory Results - last 24 hr 10/18/24 09:30: WBC 9.0, RBC 4.25 L, Hgb 11.8 L, Hct 35.0 L, MCV 82.2, MCH 27.7, MCHC 33.7, RDW 16.3, Plt Count 283, MPV 7.3 L, Neut % (Auto) 77.2, Lymph % (Auto) 12.6, [place] % (Auto) 6.6, Eos % (Auto) 2.8, Baso % (Auto) 0.7, Neut # (Auto) 6.9, Lymph # (Auto) 1.1, [place] # (Auto) 0.6, Eos # (Auto) 0.3, Baso # (Auto) 0.1, Sodium 134 L, Potassium 2.7 L* D, Chloride 94 L, Carbon Dioxide 32 H , Anion Gap 10.7, BUN 18 D, Creatinine 0.70, Estimated Creat Clear 74, Estimated GFR 112, Est GFR ( Amer) 136, Glucose 176 H, Calcium 8.1 L, Magnesium 2.1 10/18/24 14:30: Sodium 133 L, Potassium 3.1 L, Chloride 98, Carbon Dioxide 29, Anion Gap 9.1, BUN 15, Creatinine 0.60 L, Estimated Creat Clear 74, Estimated GFR 134, Est GFR ( Amer) 163, Glucose 128 H D, Calcium 7.8 L I & O for Last 24 hours: Intake & Output 10/15/24 10/16/24 10/17/24 10/18/24 23:59 23:59 23:59 23:59 Intake Total 810 / 810 640 / 1050 1880 / 1880 Output Total 325 / 325 500 / 500 Balance 485 / 485 140 / 550 188 / 1880 Weight 72.157 kg 72.21 kg 73.391 kg Microbiology Reports for the Last 24 Hours: Microbiology 10/16/24 18:18 Leg,Right Gram Stain - Final 10/16/24 18:18 Leg,Right Wound Culture - Preliminary Constitutional Constitutional: no acute distress Comments: Constitutional Constitutional: no acute distress Comments: Right lower extremity has diffuse swelling, erythema, skin sloughing, serosanguineous drainage below the knee. Toes cool to the touch. Minimal right pedal pulses. *Routine HEENT Exam Head: Present normocephalic Eye: Present EOMI and PERRL ENT: Present mucous membranes moist *Routine Neck Exam Neck: Present supple; Absent lymphadenopathy *Routine Respiratory Exam Respiratory: Present CTA bilaterally *Routine Cardiovascular Exam Cardiovascular: Present RRR *Routine Abdominal Exam Abdominal: Present soft and normoactive bowel sounds; Absent tenderness *Routine Rectal Exam Rectal:: deferred *Routine Genitalia Exam Genitalia:: deferred *Routine Extremities Exam Extremities: Absent cyanosis, clubbing or edema *Routine Skin Exam Skin: Present warm; Absent rash *Routine Neurological Exam Neurological: Present alert and oriented X3 *Routine HEENT Exam Head: Present normocephalic Eye: Present EOMI and PERRL ENT: Present mucous membranes moist *Routine Neck Exam Neck: Present supple; Absent lymphadenopathy *Routine Respiratory Exam Respiratory: Present CTA bilaterally *Routine Cardiovascular Exam Cardiovascular: Present RRR *Routine Abdominal Exam Abdominal: Present soft and normoactive bowel sounds; Absent tenderness *Routine Extremities Exam Extremities: Absent cyanosis, clubbing or edema *Routine Skin Exam Skin: Present warm; Absent rash *Routine Neurological Exam Neurological: Present alert and oriented X3 Results Data Completed and Pending Labs on day of discharge: Labs from last 24 hours 10/18/24 10/18/24 14:30 09:30 WBC 9.0 RBC 4.25 L Hgb 11.8 L Hct 35.0 L MCV 82.2 MCH 27.7 MCHC 33.7 RDW 16.3 Plt Count 283 MPV 7.3 L Neut % (Auto) 77.2 Lymph % (Auto) 12.6 [place] % (Auto) 6.6 Eos % (Auto) 2.8 Baso % (Auto) 0.7 Neut # (Auto) 6.9 Lymph # (Auto) 1.1 [place] # (Auto) 0.6 Eos # (Auto) 0.3 Baso # (Auto) 0.1 Sodium 133 L 134 L Potassium 3.1 L 2.7 L* D Chloride 98 94 L Carbon Dioxide 29 32 H Anion Gap 9.1 10.7 BUN 15 18 D Creatinine 0.60 L 0.70 Estimated Creat Clear 74 74 Estimated GFR 134 112 Est GFR ( Amer) 163 136 Glucose 128 H D 176 H Calcium 7.8 L 8.1 L Magnesium 2.1 Preliminary micro results at discharge 10/16/24 18:18 Wound Culture - Preliminary Leg,Right DS: Diagnosis Discharge Diagnosis (1) PAD (peripheral artery disease): Status: Acute Code(s): I73.9 - Peripheral vascular disease, unspecified Meds Home Medications and Allergies Home Medications ?Medication ?Instructions ?Recorded ?Confirmed ?Type atorvastatin 80 mg tablet 80 mg PO HS #90 tabs 04/29/24 10/16/24 Rx ropinirole 1 mg tablet 2 mg PO HS 10/16/24 10/16/24 History aspirin 81 mg capsule 81 mg PO DAILY #30 caps 10/18/24 Rx clindamycin HCl 300 mg capsule 300 mg PO BID 7 days #14 caps 10/18/24 Rx rivaroxaban 2.5 mg tablet (Xarelto) 2.5 mg PO BID 30 days #60 tabs 10/18/24 Rx New Prescriptions to Start Prescriptions: aspirin Madhu Benson clindamycin HCl Madhu Benson rivaroxaban [Xarelto] Madhu Benson Allergies Allergy/AdvReac Type Severity Reaction Status Date / Time No Known Allergies Allergy Verified 10/16/24 10:50 Discharge Plan Disposition Patient Disposition: Home, Self-Care Follow up Plan Follow up with: Jm Armas MD [Staff Physician] - Enter time for follow up (The office will call with a follow up appointment) Prescriptions/Medication Reconciliation: New Xarelto 2.5 mg tablet 2.5 mg PO BID 30 Days Qty: 60 0RF aspirin 81 mg capsule 81 mg PO DAILY Qty: 30 0RF clindamycin HCl 300 mg capsule 300 mg PO BID 7 Days Qty: 14 0RF Continued atorvastatin 80 mg tablet 80 mg PO HS Qty: 90 2RF ropinirole 1 mg tablet 2 mg PO HS Discontinued clopidogrel 75 mg tablet 75 mg PO DAILY Rx Instructions: Take 1 tablet by mouth once daily Problem Reconciliation Problems Reviewed?: Yes Patient Discharge Instructions Patient Instructions: Cellulitis Print Language: Tamazight Providers Primary Care Provider: Simon Mccoy Admantoinette Provider: Madhu Benson Attending Provider: Madhu Benson
--- NOTE | 2024-10-19 13:27 | SW/DCPLANNER ---
spoke with patients caregiver, she stated that everything is going good and that they have no questions.
== END 2024-10-18 17:46 | disposition home or self-care (01) ==
PROVIDERS: Internal Medicine; Admitting Provider Student in an Organized Health Care Education/Training Program; PCP Nurse Practitioner Family; Visit Provider Student in an Organized Health Care Education/Training Program
DX: I70.293 Other atherosclerosis of native arteries of extremities, bilateral legs (principal); T82.856A Stenosis of peripheral vascular stent, initial encounter; I77.1 Stricture of artery; L03.115 Cellulitis of right lower limb; Z87.891 Personal history of nicotine dependence; Y83.1 Surgical operation with implant of artificial internal device as the cause of abnormal reaction of the patient, or of later complication, without mention of misadventure at the time of the procedure
CPT/HCPCS: 36247; 36415; 75625; 75635; 75716; 80048; 80053; 80061; 83036; 83735; 85025; 85651; 86140; 87070; 87077; 87186; 87205; 93005; 93926; 99152; 99153; C1725; C1769; C1894; G0378; J1650; J2250; J2543; J3010; J7030; Q9966; Q9967

== ENCOUNTER 2025-02-18 09:35 | Outpatient (CLI) | payer MEDICARE, SELFPAY ==
[2025-02-18 10:21] LABS: Basophils # 0.1 K/mm3 (0-0.2); Basophils % 0.7 % (0.1-2.0); Eosinophils # 0.7 K/mm3 (0.0-0.4); Eosinophils % 9.5 % (0.1-12.0); Hematocrit 39.4 % (42.0-52.0); Hemoglobin 12.8 g/dL (14.1-18.0); Lymphocytes # 1.6 K/mm3 (0.7-4.5); Lymphocytes % 21.8 % (10-50); Mean Corpuscular HGB Conc 32.5 g/dL (31.8-35.4); Mean Corpuscular Hemoglobin 25.8 pg (27.0-31.2); Mean Corpuscular Volume 79.3 fl (80-94); Mean Platelet Volume 9.9 fl (7.4-10.4); Monocytes # 0.8 K/mm3 (0.1-1.0); Monocytes % 10.7 % (1.7-9.3); Neutrophils # 4.1 K/mm3 (1.8-7.8); Platelet Count 360 K/mm3 (142-424); Red Blood Count 4.97 M/mm3 (4.60-6.20); Red Cell Distribution Width 15.2 % (11.5-17.5); White Blood Count 7.2 K/mm3 (4.8-10.8)
== END 2025-02-18 23:59 | disposition home or self-care (01) ==
LOC: LAB 09:37
PROVIDERS: PCP Nurse Practitioner Family; Visit Provider Internal Medicine Infectious Disease
DX: D64.9 Anemia, unspecified (principal)
CPT/HCPCS: 36415; 85025